=== PATIENT | female | born 2000 | race Caucasian/White ===

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

== ENCOUNTER 2020-01-23 02:53 | Observation (INO) ==
[2020-01-23] MEDS ORDERED: SODIUM CHLORIDE 0.9% 1000ML 1,000 ML IV SCH (03:15)
--- NOTE | 2020-01-23 03:49 | Emergency Department Note ---
History of Present Illness General Chief complaint: Overdose (Intentional) Stated complaint: OVERDOSE Time Seen by Provider: 01/23/20 02:56 Source: patient Mode of arrival: ambulatory Limitations: no limitations History of Present Illness Provider complaint: Intentional overdose Onset (ago): day(s) 1 Maximum Pain Intensity: 0 Current Pain Intensity: 0 Associated symptoms: + loss of appetite, + malaise and + nausea/vomiting; no chest pain and no fever/chills Treatments prior to arrival: none This is a 27-year-old female who identifies as male and goes by the name Braxton who presents via EMS with police accompanying them after an intentional overdose. Patient states yesterday at 3 PM he took 7 g of Tylenol, drank two thirds of a bottle of NyQuil, took 1 shot of vodka, and smoked some weed. He states the goal was to "not wake up". Patient states he has been dealing with increased depression, however this was the first time he had thought of or attempted suicide. Patient states he does not routinely speak with anyone regarding anxiety or depression. Patient states he has had a lot of vomiting throughout the evening. Denies abdominal pain. Denies fevers or chills, black or bloody stools. Police wrote a 302 petitioning statement. Pt seen during a time of high acuity and national emergency pandemic while wearing PPE. Home Medications Home Medications Medication Instructions Recorded Confirmed Type testosterone cypionate 5 mg SUBCUT .[id number] 01/23/20 01/23/20 History [Depo-Testosterone] Allergies Allergy/AdvReac Type Severity Reaction Status Date / Time No Known Allergies Allergy Unverified 01/23/20 03:24 Past Med/Surg History Surgical History (Updated 01/23/20 @ 11:20 by Mitesh Manzo MD) S/P mastectomy, bilateral Social History Smoking Status: Current some day smoker Tobacco Type: Cigarettes Cigarettes Per Day: one every other week; Second Hand Exposure: No; Do You Dip or Chew Tobacco: No; Tobacco Cessation Education Requested by Patient: No Hx Alcohol Use: Yes Alcohol type: hard liquor Hx Substance Use: Yes Last Used Substance: Hours (ago) Preferred Language: Japanese Communication Ability: Effective Knife Setter Required: No Beliefs That Will Affect Care: None Current Living Situation: Alone Other Information That Helps Us Care for You: No Feels Safe at Home: Yes Safety Concerns: Feels Safe At This Time Gender Identity: Male Assistive Devices: Glasses Review of Systems See HPI for pertinent positives & negatives. and A total of 10 systems reviewed and were otherwise negative Physical Exam Vital Signs Vital Signs - 24 hr 01/23/20 03:05 01/23/20 03:21 01/23/20 04:45 Temperature 36.9 C Temperature Source Oral Pulse Rate 78 54 L Pulse Rate from SpO2 Sensor 55 L Respiratory Rate 14 14 Respiratory Effort / Characteristics Non-Labored Spontaneous Respiratory Depth Normal Blood Pressure 125/89 114/57 L Blood Pressure Mean 101 69 Blood Pressure Position Sitting Pulse Oximetry 100 99 97 Oxygen Delivery Method Room Air Room Air Sepsis Recent Fever Within 48 Hours No Sepsis New/Unexplained Change in Mental Status N/A Sepsis Action Taken by Nursing No Action Required GENERAL: alert, ill appearing, well nourished, no distress, non-toxic EYE EXAM: normal conjunctiva, PERRL and EOM's grossly intact OROPHARYNX: no exudate, no erythema, lips, buccal mucosa, and tongue normal and mucous membranes are moist NECK: supple, no nuchal rigidity, no adenopathy, non-tender LUNGS: Clear to auscultation. Normal chest wall mechanics, no w/r/r HEART: no murmurs, S1 normal and S2 normal ABDOMEN: abdomen soft, non-tender, normo-active bowel sounds, no masses, no rebound or guarding. BACK: Back is symmetrical on inspection and there is no deformity, no midline tenderness, no CVA tenderness. SKIN: no rashes and no bruising UPPER EXTREMITIES: upper extremities are grossly normal. FROM, nml pulses b/l. LOWER EXTREMITIES: No pitting edema. FROM, nml pulses b/l. NEURO EXAM: Normal sensorium, cranial nerves II-XII grossly intact, normal speech, no gross weakness of arms, no gross weakness of legs. Gross sensation intact. Course Course 0412: Called charge to question why no labs were performed yet. She investigated and reported they were awaiting manufacturer's service representative from lab. 0500: Case discussed with Poison Control now that labs have finally returned. They recommend 21-hour regimen of Acetadote. 0515: Patient updated on plan for medical admission at this time. No further nausea or vomiting. IV fluids infusing. [facility]. Administered Medications Lactated Ringer's (Lr) 1,000 mls @ 125 mls/hr IV .Q8H LAVERN Stop: 02/22/20 07:19 Last Admin: 01/24/20 07:18 Dose: 125 mls/hr Documented by: [id number] Infusion: 01/24/20 06:58 Dose: 125 mls/hr Documented by: [id number] Admin: 01/23/20 22:58 Dose: 125 mls/hr Documented by: [id number] Infusion: 01/23/20 22:58 Dose: 125 mls/hr Documented by: [id number] Admin: 01/23/20 15:55 Dose: 125 mls/hr Documented by: [id number] Infusion: 01/23/20 15:55 Dose: 125 mls/hr Documented by: [id number] Admin: 01/23/20 08:32 Dose: 125 mls/hr Documented by: [id number] Ondansetron HCl (Ondansetron Inj 2 Mg/Ml 2 Ml Vial) 4 mg IV Q6H PRN PRN Reason: Nausea Stop: 02/22/20 07:19 Last Admin: 01/23/20 07:33 Dose: 4 mg Documented by: [id number] Discontinued Medications Acetylcysteine (Acetylcysteine Iv 21 Hr Regimen (>40kg)) 1 ea IV NOW STA; Protocol Stop: 01/23/20 05:07 Last Admin: 01/23/20 08:32 Dose: Not Given Documented by: [id number] Sodium Chloride (Nss 1000ml) 1,000 mls @ 999 mls/hr IV .Q1H1M LAVERN Stop: 01/23/20 04:15 Last Infusion: 01/23/20 04:37 Dose: 0 mls/hr Documented by: [id number] Admin: 01/23/20 03:22 Dose: 999 mls/hr Documented by: [id number] Sodium Chloride (Nss 1000ml) 1,000 mls @ 999 mls/hr IV .Q1H1M ONE Stop: 01/23/20 05:21 Last Infusion: 01/23/20 06:34 Dose: 0 mls/hr Documented by: [id number] Admin: 01/23/20 05:34 Dose: 999 mls/hr Documented by: [id number] Acetylcysteine 7,710 mg/ (Dextrose) 238.55 mls @ 200 mls/hr IV ONCE ONE Stop: 01/23/20 06:17 Last Infusion: 01/23/20 07:06 Dose: 0 mls/hr Documented by: [id number] Admin: 01/23/20 05:53 Dose: 200 mls/hr Documented by: [id number] Acetylcysteine 2,570 mg/ (Dextrose) 512.85 mls @ 125 mls/hr IV ONCE ONE Stop: 01/23/20 10:13 Last Infusion: 01/23/20 12:38 Dose: 0 mls/hr Documented by: [id number] Admin: 01/23/20 08:31 Dose: 125 mls/hr Documented by: [id number] Acetylcysteine 5,140 mg/ (Dextrose) 1,025.7 mls @ 62.5 mls/hr IV ONCE ONE Stop: 01/24/20 02:31 Last Infusion: 01/24/20 05:05 Dose: 0 mls/hr Documented by: [id number] Admin: 01/23/20 12:40 Dose: 62.5 mls/hr Documented by: [id number] Ondansetron HCl (Ondansetron Inj 2 Mg/Ml 2 Ml Vial) 4 mg IV NOW STA Stop: 01/23/20 04:14 Last Admin: 01/23/20 04:37 Dose: 4 mg Documented by: [id number] Critical Care Time Critical Care Time: Yes Total Critical Care Time: 39 Critical care of 39 min performed to assess and manage high likelihood of life- threatening APAP toxicity, involving labs and imaging performed with assessment to evaluate APAP toxicity diagnosis with frequent reassessment. This time includes bedside time, treatment discussions with patient/family/consultants, documentation time and excludes procedure time. Medical Decision Making Differential Diagnosis Overdose, toxicologic, infection, hypoglycemia, electrolyte abnormalities, cardiac sources, intracerebral event, neurologic, trauma, mood disorder, infection, hypoglycemia, electrolyte abnormalities, cardiac sources, intrac erebral event, toxicologic, neurologic, as well as others. Medical Records Attestation: I reviewed the patient's medical records. Home Medications Current Medication List: was personally reviewed by me Laboratory Data Attestation: I reviewed the patient's lab results. Result diagrams: 01/24/20 00:11 01/24/20 00:11 Lab Results 01/23/20 01/23/2020 Range/Units 03:46 03:46 03:46 WBC 7.75 (4.8-10.8) K/uL RBC 5.90 H (4.2-5.4) M/uL Hgb 16.9 H (12.0-16.0) g/dL Hct 49.2 H (37-47) % MCV 83.4 (80-100) fL MCH 28.6 (25-34) pg MCHC 34.3 (32-36) g/dL RDW Std Deviation 35.6 L (36.4-46.3) fL RDW Coeff of Norma 11.7 (11.5-14.5) % Plt Count 259 (130-400) K/uL MPV 10.9 H (7.4-10.4) fL Immature Gran % (Auto) 0.1 % Neut % (Auto) 88.2 % Lymph % (Auto) 8.9 % Hutchinson % (Auto) 2.6 % Eos % (Auto) 0.1 % Baso % (Auto) 0.1 % Neut # (Auto) 6.83 H (1.4-6.5) K/uL Lymph # (Auto) 0.69 L (1.2-3.4) K/uL Hutchinson # (Auto) 0.20 (0.11-0.59) K/uL Eos # (Auto) 0.01 (0-0.5) K/uL Baso # (Auto) 0.01 (0-0.2) K/uL Immature Gran # (Auto) 0.01 (0.00-0.02) K/uL PT (9.0-12.0) Seconds INR (0.9-1.1) Sodium 143 (136-145) mmol/L Potassium 4.1 (3.5-5.1) mmol/L Chloride 113 H (98-107) mmol/L Carbon Dioxide 25 (21-32) mmol/L Anion Gap 5.0 (3-11) BUN 11 (7-18) mg/dl Creatinine 1.20 (0.6-1.2) mg/dl Est Cr Clr Drug Dosing 60.2 ml/min Est GFR ( Amer) 74.8 Est GFR (Non-Af Amer) 64.6 BUN/Creatinine Ratio 9.3 L (10-20) Glucose 102 H (70-99) mg/dl Calcium 8.5 (8.5-10.1) mg/dl Total Bilirubin 0.4 (0.2-1) mg/dl AST 32 (15-37) U/L ALT 43 (12-78) U/L Alkaline Phosphatase 69 (45-117) U/L Total Protein 7.2 (6.4-8.2) gm/dl Albumin 3.5 (3.4-5.0) gm/dl Globulin 3.7 (2.5-4.0) gm/dl Albumin/Globulin Ratio 0.9 (0.9-2) TSH 1.020 (0.300-4.500) uIu/ml HCG, Qual (Negative) Urine Color Urine Appearance (Clear) Urine pH (4.5-7.5) Ur Specific [place] (1.000-1.030) Urine Protein (Negative) Urine Glucose (UA) (Negative) Urine Ketones (Negative) Urine Blood (Negative) Urine Nitrite (Negative) Urine Bilirubin (Negative) Urine Urobilinogen (Negative) Ur Leukocyte Esterase (Negative) Urine WBC (Auto) (0-5) /hpf Urine RBC (Auto) (0-4) /hpf U Hyaline Cast (Auto) (0-5) /lpf U Epithel Cells (Auto) (0-5) /lpf Urine Bacteria (Auto) (Negative) Salicylates < 1.7 L (2.8-20) mg/dl Urine Opiates Screen (Neg) Ur Methadone, Qual (Neg) Acetaminophen 60 H (10-30) ug/ml Urine Barbiturates (Neg) Ur Phencyclidine (PCP) (Neg) U Amphetamin/Meth Scrn (Neg) MDMA (Ecstasy) Screen (Neg) U Benzodiazepines Scrn (Neg) Ur Cocaine Metabolite (Neg) U Marijuana (THC) Screen (Neg) Ethyl Alcohol mg/dL (0-3) mg/dl 01/23/20 01/23/20 01/23/20 Range/Units 03:46 03:46 03:52 WBC (4.8-10.8) K/uL RBC (4.2-5.4) M/uL Hgb (12.0-16.0) g/dL Hct (37-47) % MCV (80-100) fL MCH (25-34) pg MCHC (32-36) g/dL RDW Std Deviation (36.4-46.3) fL RDW Coeff of Norma (11.5-14.5) % Plt Count (130-400) K/uL MPV (7.4-10.4) fL Immature Gran % (Auto) % Neut % (Auto) % Lymph % (Auto) % Hutchinson % (Auto) % Eos % (Auto) % Baso % (Auto) % Neut # (Auto) (1.4-6.5) K/uL Lymph # (Auto) (1.2-3.4) K/uL Hutchinson # (Auto) (0.11-0.59) K/uL Eos # (Auto) (0-0.5) K/uL Baso # (Auto) (0-0.2) K/uL Immature Gran # (Auto) (0.00-0.02) K/uL PT 12.7 H (9.0-12.0) Seconds INR 1.2 H (0.9-1.1) Sodium (136-145) mmol/L Potassium (3.5-5.1) mmol/L Chloride (98-107) mmol/L Carbon Dioxide (21-32) mmol/L Anion Gap (3-11) BUN (7-18) mg/dl Creatinine (0.6-1.2) mg/dl Est Cr Clr Drug Dosing ml/min Est GFR ( Amer) Est GFR (Non-Af Amer) BUN/Creatinine Ratio (10-20) Glucose (70-99) mg/dl Calcium (8.5-10.1) mg/dl Total Bilirubin (0.2-1) mg/dl AST (15-37) U/L ALT (12-78) U/L Alkaline Phosphatase (45-117) U/L Total Protein (6.4-8.2) gm/dl Albumin (3.4-5.0) gm/dl Globulin (2.5-4.0) gm/dl Albumin/Globulin Ratio (0.9-2) TSH (0.300-4.500) uIu/ml HCG, Qual Negative (Negative) Urine Color Urine Appearance (Clear) Urine pH (4.5-7.5) Ur Specific [place] (1.000-1.030) Urine Protein (Negative) Urine Glucose (UA) (Negative) Urine Ketones (Negative) Urine Blood (Negative) Urine Nitrite (Negative) Urine Bilirubin (Negative) Urine Urobilinogen (Negative) Ur Leukocyte Esterase (Negative) Urine WBC (Auto) (0-5) /hpf Urine RBC (Auto) (0-4) /hpf U Hyaline Cast (Auto) (0-5) /lpf U Epithel Cells (Auto) (0-5) /lpf Urine Bacteria (Auto) (Negative) Salicylates (2.8-20) mg/dl Urine Opiates Screen (Neg) Ur Methadone, Qual (Neg) Acetaminophen (10-30) ug/ml Urine Barbiturates (Neg) Ur Phencyclidine (PCP) (Neg) U Amphetamin/Meth Scrn (Neg) MDMA (Ecstasy) Screen (Neg) U Benzodiazepines Scrn (Neg) Ur Cocaine Metabolite (Neg) U Marijuana (THC) Screen (Neg) Ethyl Alcohol mg/dL < 3.0 (0-3) mg/dl 01/23/20 01/23/20 Range/Units 05:29 05:29 WBC (4.8-10.8) K/uL RBC (4.2-5.4) M/uL Hgb (12.0-16.0) g/dL Hct (37-47) % MCV (80-100) fL MCH (25-34) pg MCHC (32-36) g/dL RDW Std Deviation (36.4-46.3) fL RDW Coeff of Norma (11.5-14.5) % Plt Count (130-400) K/uL MPV (7.4-10.4) fL Immature Gran % (Auto) % Neut % (Auto) % Lymph % (Auto) % Hutchinson % (Auto) % Eos % (Auto) % Baso % (Auto) % Neut # (Auto) (1.4-6.5) K/uL Lymph # (Auto) (1.2-3.4) K/uL Hutch[place] # (Auto) (0.11-0.59) K/uL Eos # (Auto) (0-0.5) K/uL Baso # (Auto) (0-0.2) K/uL Immature Gran # (Auto) (0.00-0.02) K/uL PT (9.0-12.0) Seconds INR (0.9-1.1) Sodium (136-145) mmol/L Potassium (3.5-5.1) mmol/L Chloride (98-107) mmol/L Carbon Dioxide (21-32) mmol/L Anion Gap (3-11) BUN (7-18) mg/dl Creatinine (0.6-1.2) mg/dl Est Cr Clr Drug Dosing ml/min Est GFR ( Amer) Est GFR (Non-Af Amer) BUN/Creatinine Ratio (10-20) Glucose (70-99) mg/dl Calcium (8.5-10.1) mg/dl Total Bilirubin (0.2-1) mg/dl AST (15-37) U/L ALT (12-78) U/L Alkaline Phosphatase (45-117) U/L Total Protein (6.4-8.2) gm/dl Albumin (3.4-5.0) gm/dl Globulin (2.5-4.0) gm/dl Albumin/Globulin Ratio (0.9-2) TSH (0.300-4.500) uIu/ml HCG, Qual (Negative) Urine Color Dark Yellow Urine Appearance Clear (Clear) Urine pH 5.0 (4.5-7.5) Ur Specific [place] > 1.045 H (1.000-1.030) Urine Protein Trace H (Negative) Urine Glucose (UA) Negative (Negative) Urine Ketones Negative (Negative) Urine Blood Negative (Negative) Urine Nitrite Negative (Negative) Urine Bilirubin Negative (Negative) Urine Urobilinogen Negative (Negative) Ur Leukocyte Esterase Negative (Negative) Urine WBC (Auto) 1-5 (0-5) /hpf Urine RBC (Auto) 0-4 (0-4) /hpf U Hyaline Cast (Auto) 10-30 H (0-5) /lpf U Epithel Cells (Auto) >30 H (0-5) /lpf Urine Bacteria (Auto) Negative (Negative) Salicylates (2.8-20) mg/dl Urine Opiates Screen Neg (Neg) Ur Methadone, Qual Neg (Neg) Acetaminophen (10-30) ug/ml Urine Barbiturates Neg (Neg) Ur Phencyclidine (PCP) Neg (Neg) U Amphetamin/Meth Scrn Neg (Neg) MDMA (Ecstasy) Screen Neg (Neg) U Benzodiazepines Scrn Neg (Neg) Ur Cocaine Metabolite Neg (Neg) U Marijuana (THC) Screen Pos H (Neg) Ethyl Alcohol mg/dL (0-3) mg/dl ECG Data Attestation: I personally reviewed and interpreted this ECG as follows: Indication: + toxicologic Rate (beats per minute): 90 Rhythm: + normal sinus ECG Intervals/blocks: + Normal QRS and + Normal QT ECG Friend: + Normal ECG ST segments: + Normal ST segments Additional Comments: No evidence of a terminal R wave in aVR MDM Narrative This is a 19-year-old patient here after an intentional overdose with alcohol, Tylenol, NyQuil, and marijuana. Labs were slow and being obtained with lab manufacturer's service representative which delayed return of Tylenol level. Ultimately Tylenol level was elevated despite normal LFTs and in discussion with poison control he did recommend treatment with Acetadote. Patient's nausea improved here with addition of Zofran. Patient was hydrated with IV fluids. I did discuss all results with patient as well as need for medical admission prior to additional psychiatric evaluation, he verbalized understanding was in agreement with plan. Likely APAP levels elevated due to combination of oral Tylenol plus the acetaminophen that is in NyQuil. I have no other suspicion for any additional toxidrome at this time. Patient denied any other coingestions. Patient's other labs reassuring. Patient remained hemodynamically stable while in the emergency room. An order was placed for continuous cardiac monitoring. The monitor shows a rate of _66_ with _NS_ rhythm. Impression & Plan Intentional acetaminophen overdose, Suicide attempt, Depression, Nausea & vomiting Discharge Plan Visit Data Chief Complaint: Overdose (Intentional) Stated Complaint: OVERDOSE ED Provider: Jaleesa Robins Discharge Problem: Intentional acetaminophen overdose, Suicide attempt, Depression, Nausea & vomiting Patient Disposition: Admitted As Inpatient Condition: Good Discharge Instructions Interventions: ED Discharge Assessment Last Done: 01/23/20 07:04 Discharge Problem: Intentional acetaminophen overdose Qualifiers: Encounter type: initial encounter Qualified Code(s): T39.1X2A - Poisoning by 4- Aminophenol derivatives, intentional self-harm, initial encounter Depression Qualifiers: Depression Type: major depressive disorder Major depression recurrence: unspecified whether recurrent Active/Remission status: currently active Major depression episode severity: moderate Qualified Code(s): F32.1 - Major depr essive disorder, single episode, moderate Nausea & vomiting Qualifiers: Vomiting type: unspecified Vomiting Intractability: non-intractable Qualified Code(s): R11.2 - Nausea with vomiting, unspecified
[2020-01-23 04:06] LABS: Basophils # (auto) 0.01 K/uL (0-0.2); Basophils % (auto) 0.1 %; Eosinophils # (auto) 0.01 K/uL (0-0.5); Eosinophils % (auto) 0.1 %; Hematocrit (blood only) 49.2 % (37-47); Hemoglobin 16.9 g/dL (12.0-16.0); Immature Granulocytes # (auto) 0.01 K/uL (0.00-0.02); Immature Granulocytes % (auto) 0.1 %; Lymphocytes # (auto) 0.69 K/uL (1.2-3.4); Lymphocytes % (auto) 8.9 %; Mean Corpuscular Hemoglobin 28.6 pg (25-34); Mean Corpuscular Hgb Conc 34.3 g/dL (32-36); Mean Corpuscular Volume 83.4 fL (80-100); Mean Platelet Volume 10.9 fL (7.4-10.4); Monocytes % (auto) 2.6 %; Neutrophils # (auto) 6.83 K/uL (1.4-6.5); Neutrophils % (auto) 88.2 %; Platelet Count 259 K/uL (130-400); RDW Coefficient of Variation 11.7 % (11.5-14.5); RDW Standard Deviation 35.6 fL (36.4-46.3); White Blood Count 7.75 K/uL (4.8-10.8)
[2020-01-23] MEDS ORDERED: ONDANSETRON INJ 2 MG/ML 2 ML VIAL IV STA (04:13)
[2020-01-23] MEDS ORDERED: SODIUM CHLORIDE 0.9% 1000ML 1,000 ML IV ONE (04:21)
[2020-01-23 04:24] LABS: Acetaminophen 60 ug/ml (10-30); Albumin Level 3.5 gm/dl (3.4-5.0); BUN Creatinine Ratio 9.3 (10-20); Calcium 8.5 mg/dl (8.5-10.1); Creatinine Clr Calc Pharmacy 60.2 ml/min; Est GFR (African American) 74.8; Est GFR (Non-African American) 64.6; Potassium 4.1 mmol/L (3.5-5.1); Salicylate < 1.7 mg/dl (2.8-20)
[2020-01-23 04:35] LABS: Albumin Globulin Ratio 0.9 (0.9-2); Bilirubin,Total 0.4 mg/dl (0.2-1); Globulin 3.7 gm/dl (2.5-4.0); Thyroid Stimulating Hormone 1.02 uIu/ml (0.300-4.500); Total Protein 7.2 gm/dl (6.4-8.2)
[2020-01-23 04:40] LABS: Pregnancy Test, Serum Negative (Negative)
[2020-01-23] MEDS ORDERED: ACETYLCYSTEINE IV ONE ×3 (05:06→10:07)
[2020-01-23] MEDS ORDERED: AcetylCYSTEINE IV 21 HR REGIMEN (>40KG) IV STA (05:06)
[2020-01-23] MEDS ORDERED: DEXTROSE 5% IV ONE ×3 (05:06→10:07)
[2020-01-23 05:32] LABS: INR 1.2 (0.9-1.1); Prothrombin Time 12.7 Seconds (9.0-12.0)
[2020-01-23 05:43] LABS: Appearance Urine Clear (Clear); Bacteria Urine Automated Negative (Negative); Bilirubin Urine Negative (Negative); Blood Urine Negative (Negative); Color Urine Dark Yellow; Epithelial Cell Urine Auto >30 /lpf (0-5); Glucose Urine UA Negative (Negative); Ketones Urine Negative (Negative); Leukocyte Esterase Urine Negative (Negative); Nitrite Urine Negative (Negative); Protein Urine Trace (Negative); RBC Urine Automated 0-4 /hpf (0-4); Specific Gravity Urine > 1.045 (1.000-1.030); Urobilinogen Urine Negative (Negative)
[2020-01-23 06:00] LABS: Amphetamines+Metham, Urine Neg (Neg); Barbiturates, Urine Neg (Neg); Benzodiazepine, Urine Neg (Neg); Cocaine, Urine Neg (Neg); MDMA (Ecstacy), Urine Neg (Neg); Methadone, Urine Neg (Neg); Opiate, Urine Neg (Neg); Phencyclidine, Urine Neg (Neg)
[2020-01-23] MEDS ORDERED: ONDANSETRON INJ 2 MG/ML 2 ML VIAL IV PRN (07:20)
[2020-01-23] MEDS ORDERED: POLYETHYLENE (MIRALAX) 17 GM PACK PO PRN (07:20)
[2020-01-23] MEDS ORDERED: ALUMINUM/MAGNESIUM SUSP 30 ML UDC PO PRN (07:20)
--- NOTE | 2020-01-23 07:52 | XRay Report ---
XR chest 1V portable CLINICAL HISTORY: vomiting COMPARISON STUDY: No previous studies for comparison. FINDINGS: Lung volumes are normal. Lungs are clear. There is no pneumothorax or pleural effusion. Car diac size is normal. Mediastinal contours are normal. There is no evidence for pulmonary edema. IMPRESSION: No acute cardiopulmonary findings. ACT 112: Negative or not required by law. Electronically signed by: Cliff Silva M.D. 01/23/2020 7:50 AM
--- NOTE | 2020-01-23 07:53 | History & Physical Report ---
Date of Service January 23, 2020 Assessment & Plan (1) Intentional acetaminophen overdose: Acetaminophen overdose Small overdose, 7 grams of acetaminophen as well as nyquil and vodka and vomited shortly after ingestion but poison control contacted who recommend full NAC course Patient asymptomatic at present Patient startd on 24 hour NAC protocol Will continue to monitor closely but expect a full recovery Suicide attempt First suicide attempt per patient, Psychiatry consulted Suicide precautions, 1:1 ordered DVT PPx: Ambulate F/E/N: Regular diet Dispo: Admit for further evaluation and FUll Code (2) Suicide attempt: (3) Tobacco abuse: (4) Depression: Admission and Anticipated Discharge Date Admission Date: January 23, 2020 History of Present Illness Chief Complaint: Intentional overdose Primary Care Provider: [facility] Braxton Jackson is a 19 year old transgender male (s/p bilateral matectomy, on biweekly testosterone injections) who presents after a suicide attempt and intentional overdose. Patient has been dealing with a lot of stressors recently including a toshia long dstance relationship (boyfriend lives in [place]), his mother has been ill and hospitalized, he is very concerned about the election coming up and feels that his rights may be taken away depending on the results. These stressors have been ongoing and worsening of late. Yesterday around 4 pm he decided that he couldn't take it anymore and desired to kill himself. He appraised his house and took everyghing he had including 7 g tylenol, most of a bottle of nyquil, and a shot of vodka. Patient became sick at some point thereafter and vomited. His phone had and he was unsure of the time when he vomited or how many times he did but he does say it was several times. He then got into the bathtub both to soothe his nausea and because he hoped he would lose consciousness and drown. Eventually he felt as though he would not and did not want to do irreversible damage to liver and called 911. On presentation to ED vitals L poison control was contacted and patient was started on NAC therapy. ECG without acute changes. Very occasional smoker, very occasional diinker, smokes weed occasionally. Full Code, 302 on file from police Allergies Allergy/AdvReac Type Severity Reaction Status Date / Time No Known Allergies Allergy Unverified 10/24/20 03:24 Home Medications Home Medications Medication Instructions Recorded Confirmed Type testosterone cypionate 5 mg SUBCUT .[id number] 01/23/20 01/23/20 History [Depo-Testosterone] Past Med/Surg History Surgical History (Updated 01/23/20 @ 11:20 by Mitesh Manzo MD) S/P mastectomy, bilateral Social History Smoking Status: Current some day smoker Tobacco Type: Cigarettes Cigarettes Per Day: one every other week; Second Hand Exposure: No; Do You Dip or Chew Tobacco: No; Tobacco Cessation Education Requested by Patient: No Hx Alcohol Use: Yes Alcohol type: hard liquor Hx Substance Use: Yes Last Used Substance: Hours (ago) Preferred Language: Beninese Communication Ability: Effective Perforator Required: No Beliefs That Will Affect Care: None Current Living Situation: Alone Other Information That Helps Us Care for You: No Feels Safe at Home: Yes Safety Concerns: Feels Safe At This Time Gender Identity: Male Assistive Devices: Glasses Review of Systems Review of Systems: All systems reviewed & are unremarkable except as noted in HPI & below Physical Exam Constitutional: WD/WN, vitals as above Eyes: PERRL, conjunctivae normal, anicteric sclerae ENMT: external ear and nose normal, oropharynx normal Cardiovascular: RRR, no murmur, no edema Gastrointestinal (Abdomen): normal bowel sounds, soft, nontender, no hepatosplenomegaly Musculoskeletal: no cyanosis or clubbing, extremities motor strength 5/5 Skin: no rashes, warm and dry Results & Data Results & Data ([facility]) Vital Signs (Past 12 Hours) Vital Signs Temp Pulse Resp BP Pulse Ox 01/23/20 06:00 83 17 136/86 99 01/23/20 05:00 52 L 18 109/54 L 98 01/23/20 04:45 54 L 14 114/57 L 97 01/23/20 03:21 99 01/23/20 03:05 36.9 C 78 14 125/89 100 Code Status & VTE Plan VTE Prophylaxis Plan VTE Prophylaxis will be ordered: No Supervising Physician Co-Signing Physician Notes Patient seen and examined, chart reviewed, case discussed with Dr. Adames and I agree with his assessment and plan as documented above. Briefly, patient is 19yo transgender male (preferred name: Braxton) presenting after intentional Tylenol overdose suicide attempt. Also EtOH, Nyquil ingestion. Patient ingested 7gm of Tylenol Tylenol level=60 On exam patient is afebrile, HD stable, NAD, resting comfortably Affect slightly flat but patient makes good eye contact and answers questions appropriately Skin -no rash/lesions HEENT - NC/AT, PERRL, EOMI, MMM Heart - +S1/S2, regular, no m/r/g Lungs - CTA Abd - +BS, soft, NT/ND Ext - No edema Labs and images reviewed Assessment/Plan: 19yo transgender male presenting after intentional Tylenol overdose. Elevated Tylenol level of 60 AST/ALT within normal limits INR=1.2 -NAC per protocol -Monitor liver studies, INR -Psychiatry assistance appreciated -Remainder of plan as above Resident Activity Tracking Resident Involvement: Resident Care Provided Care Provided: Adult Hospital Medicine
[2020-01-23] MEDS: LACTATED RINGER'S 1,000 ML IV SCH ×3 (08:32→22:58)
--- NOTE | 2020-01-23 11:43 | Psychiatric Consultation ---
Date of Consultation January 23, 2020 Impression / Recommendations Impression Portions of the above document may have been created using voice recognition software which may introduce word substitution errors. Please direct any questions to the undersigned. (1) Depression: -Background smoldering depression sounds longstanding and coping acutely overwhelmed associated with multiple psychosocial stressors -Discussed potential treatment interventions such as serotonin acting antidepressant pharmacotherapy for depression and likely OCPD personality traits and associated anxiety but will defer antidepressant trial temporarily in the setting of potential hepatic injury associated with Tylenol overdose (2) Suicide attempt: -Patient confirms toxic ingestion was a suicide attempt. Precontemplation evidenced by suicide note. Presently denying continued intent or plan for self- harm. -Patient is expected to require inpatient psychiatric hospitalization following medical clearance and presently endorsing willingness for such. He should not be discharged without psychiatric clearance. -Maintain sitter for safety (3) Intentional acetaminophen overdose: -Tylenol level of 60 approximately 12 hours postingestion and receiving 24-hour NAC protocol per per poison control recommendations. Ingestion of both Tylenol tablets as well as NyQuil reported. Presently asymptomatic. LFTs normal so far. Risk Factors Assessment Do You Have Access To A Gun?: No Psych History Identifying Data Patient, who goes by the name Braxton, is a pleasant transgendered female to male individual who reports a history of depression but minimal mental health treatment who presents status post intentional acetaminophen overdose in a suicide attempt. Chief Complaint "I just realized that I had not been happy and I thought, if it happens it happens". History of Present Illness Patient presented through [facility] reporting intentional Tylenol overdose around 4 PM the prior afternoon. Reported 7 g Tylenol ingestion, three quarters of a bottle of generic NyQuil, shot of vodka, and some marijuana. This ingestion was taken in an effort to end his life. Mother reports suicide note was found and patient reports that he did apologize in the note for taking his life to those he cares about and provided instructions about what to do with his body and his belongings. He clearly states that he was ambivalent about living at that point. In exploring this he describes more avoidance of emotional suffering than lack of meaningful life experience. He describes background suicidal ideation for many years, likely going back to middle school, but has never attempted to harm himself before. He identifies obligation or responsibility to others as primary barrier to self-harm in the past. Believes he has been depressed since childhood. Suffered traumatic loss of of father at age 5. Reports he was told this was from a heart attack however apparently was due to an accidental overdose. Describes long awareness of the unfairness of life, but and life are commingled, and states in short, the world sucks." He describes a tendency to be highly self-critical, perfectionistic, and will "reanalyze" prior decision making in a ruminative manner. Presently he describes some continued ambivalence about the prospect of being alive but states that he has already had experiences here in the hospital that he has been grateful for which he would not have had if he had been successful in taking his life. He endorses willingness to accept treatment for his depression and indicates that he would be willing for voluntary psychiatric hospitalization following medical clearance. Patient does have a box to be 302 warrant on his chart signed by police. Recent multiple stressors including a break-up with a partner about 1 week ago which reportedly had been a toshia long- distance relationship with boyfriend living in [place]. His mother has also recently been ill and hospitalized and he has voiced significant distress about upcoming election. Symptoms of depression have included decreased interest, feelings of guilt, decreased energy, decreased concentration, variable appetite. Denies insomnia. Denies symptoms of kameron. Anxiety variable but has been increased associated with COVID-19 pandemic and does describe perfectionistic drives and a desire to seek control in his life but does not endorse overt ritualized behavior. He denies symptoms of psychosis, eating disorder. He is not taking any psychotropics at home. Initial Tylenol level appears drawn approximately 12 hours postingestion was 60 and N-acetylcysteine protocol initiated per poison control recommendations. LFTs normal so far. Presently no GI symptoms. Did reportedly vomit following ingestion. Reports that he did not see pills in his vomitus. Past Psychiatric History Previous Psych History: No psychiatrist. Briefly saw a provider at [facility] sophomore year at [employer] Out[facility] Services: On wait list for a [facility] at [facility] Previous Psych Admissions: Denies Do You Have Access To A Gun?: No History of Previous Suicide Attempt: No Past Medication Trials: 1 brief prior psychotropic trial, unrecalled agent, felt it did not work in high school Allergies Allergy/AdvReac Type Severity Reaction Status Date / Time No Known Allergies Allergy Unverified 01/23/20 03:24 Home Medications Home Medications Medication Instructions Recorded Confirmed Type testosterone cypionate 5 mg SUBCUT .[id number] 01/23/20 01/23/20 History [Depo-Testosterone] Family History Mother with depression and anxiety. Uncle with bipolar disorder. Uncle completed suicide. Also reports family history of heart disease and hypertension in mother. Substance Abuse History Reports recreational marijuana use which he finds helpful for anxiety. Alcohol use about 1 time per month and reported as only social. Reports inconsistent social tobacco use. 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[employer]) Marital Status: Single Number Of Children: 0 Beliefs That Will Affect Care: None History of Legal Problems: Denies Psychological Trauma History Comment: of father age 5 Patient History Surgical History (Updated 01/23/20 @ 11:20 by Mitesh Manzo MD) S/P mastectomy, bilateral Social History Smoking Status: Current some day smoker Tobacco Type: Cigarettes Cigarettes Per Day: one every other week; Second Hand Exposure: No; Do You Dip or Chew Tobacco: No; Tobacco Cessation Education Requested by Patient: No Hx Alcohol Use: Yes Alcohol type: hard liquor Hx Substance Use: Yes Last Used Substance: Hours (ago) Preferred Language: Citizen Of [place] Communication Ability: Effective Typo Machine Operator Required: No Beliefs That Will Affect Care: None Current Living Situation: Alone Other Information That Helps Us Care for You: No Feels Safe at Home: Yes Safety Concerns: Feels Safe At This Time Gender Identity: Male Assistive Devices: Glasses Physical Exam Psychiatric: Orientation: alert, oriented x 3 and cooperative Apperance: + disheveled and appeared stated age Eye Contact: good eye contact Motor Behavior: no abnormal motor movements; n tremor Speech: normal rate /rhythm/volume of speech Affect: mood congruent with affect (Affect is serious but not blunted or flat) Mood: + depressed mood and + anxious mood Thought Process: linear/logical thought process Thought Content: + preoccupation and + guilt Suicidal Thoughts: denies suicidal plan (Denies further intent or plan for self-harm while hospitalized) and denies suicidal intent; + reports suicidal thoughts Homicidal Thoughts: denies homicidal thoughts Hallucinations: no auditory hallucinations, no visual hallucinations and no tactile hallucinations Cognition: recent memory grossly intact, remote memory grossly intact and attention grossly intact Estimated Intelligence: average estimated intelligence Insight: good insight Judgement: + limited judgement (Judgment presently impaired associated with mood disturbance and suicidal impulsivity) Vital Signs (Past 24 Hours): Last Vital Signs Temp 36.8 C 01/23/20 07:20 Pulse 82 01/23/20 07:20 Resp 16 01/23/20 07:20 BP 121/75 01/23/20 07:20 Pulse Ox 99 01/23/20 07:20 Review of Systems Gastrointestinal: no abdominal pain, no nausea and no problem reported Psychiatric: as per Subjective / HPI 10 point review of systems otherwise negative except as per HPI Results & Data (PSY) Laboratory Results Laboratory Results - last 24 hr 01/23/20 01/23/20 01/23/20 03:46 03:46 03:46 WBC 7.75 RBC 5.90 H Hgb 16.9 H Hct 49.2 H MCV 83.4 MCH 28.6 MCHC 34.3 RDW Std Deviation 35.6 L RDW Coeff of Norma 11.7 Plt Count 259 MPV 10.9 H Immature Gran % (Auto) 0.1 Neut % (Auto) 88.2 Lymph % (Auto) 8.9 Montague % (Auto) 2.6 Eos % (Auto) 0.1 Baso % (Auto) 0.1 Neut # (Auto) 6.83 H Lymph # (Auto) 0.69 L Montague # (Auto) 0.20 Eos # (Auto) 0.01 Baso # (Auto) 0.01 Immature Gran # (Auto) 0.01 PT INR Sodium 143 Potassium 4.1 Chloride 113 H Carbon Dioxide 25 Anion Gap 5.0 BUN 11 Creatinine 1.20 Est Cr Clr Drug Dosing 60.2 Est GFR ( Amer) 74.8 Est GFR (Non-Af Amer) 64.6 BUN/Creatinine Ratio 9.3 L Glucose 102 H Calcium 8.5 Total Bilirubin 0.4 AST 32 ALT 43 Alkaline Phosphatase 69 Total Protein 7.2 Albumin 3.5 Globulin 3.7 Albumin/Globulin Ratio 0.9 TSH 1.020 HCG, Qual Urine Color Urine Appearance Urine pH Ur Specific Eldridge Urine Protein Urine Glucose (UA) Urine Ketones Urine Blood Urine Nitrite Urine Bilirubin Urine Urobilinogen Ur Leukocyte Esterase Urine WBC (Auto) Urine RBC (Auto) U Hyaline Cast (Auto) U Epithel Cells (Auto) Urine Bacteria (Auto) Salicylates < 1.7 L Urine Opiates Screen Ur Methadone, Qual Acetaminophen 60 H Urine Barbiturates Ur Phencyclidine (PCP) U Amphetamin/Meth Scrn MDMA (Ecstasy) Screen U Benzodiazepines Scrn Ur Cocaine Metabolite U Marijuana (THC) Screen U Marijuana THC Carboxy Drug Screen Comment Ethyl Alcohol mg/dL 01/23/20 01/23/20 01/23/20 03:46 03:46 03:52 WBC RBC Hgb Hct MCV MCH MCHC RDW Std Deviation RDW Coeff of Norma Plt Count MPV Immature Gran % (Auto) Neut % (Auto) Lymph % (Auto) Montague % (Auto) Eos % (Auto) Baso % (Auto) Neut # (Auto) Lymph # (Auto) Montague # (Auto) Eos # (Auto) Baso # (Auto) Immature Gran # (Auto) PT 12.7 H INR 1.2 H Sodium Potassium Chloride Carbon Dioxide Anion Gap BUN Creatinine Est Cr Clr Drug Dosing Est GFR ( Amer) Est GFR (Non-Af Amer) BUN/Creatinine Ratio Glucose Calcium Total Bilirubin AST ALT Alkaline Phosphatase Total Protein Albumin Globulin Albumin/Globulin Ratio TSH HCG, Qual Negative Urine Color Urine Appearance Urine pH Ur Specific Eldridge Urine Protein Urine Glucose (UA) Urine Ketones Urine Blood Urine Nitrite Urine Bilirubin Urine Urobilinogen Ur Leukocyte Esterase Urine WBC (Auto) Urine RBC (Auto) U Hyaline Cast (Auto) U Epithel Cells (Auto) Urine Bacteria (Auto) Salicylates Urine Opiates Screen Ur Methadone, Qual Acetaminophen Urine Barbiturates Ur Phencyclidine (PCP) U Amphetamin/Meth Scrn MDMA (Ecstasy) Screen U Benzodiazepines Scrn Ur Cocaine Metabolite U Marijuana (THC) Screen U Marijuana THC Carboxy Drug Screen Comment Ethyl Alcohol mg/dL < 3.0 01/23/20 01/23/20 01/23/20 05:29 05:29 05:29 WBC RBC Hgb Hct MCV MCH MCHC RDW Std Deviation RDW Coeff of Norma Plt Count MPV Immature Gran % (Auto) Neut % (Auto) Lymph % (Auto) Montague % (Auto) Eos % (Auto) Baso % (Auto) Neut # (Auto) Lymph # (Auto) Montague # (Auto) Eos # (Auto) Baso # (Auto) Immature Gran # (Auto) PT INR Sodium Potassium Chloride Carbon Dioxide Anion Gap BUN Creatinine Est Cr Clr Drug Dosing Est GFR ( Amer) Est GFR (Non-Af Amer) BUN/Creatinine Ratio Glucose Calcium Total Bilirubin AST ALT Alkaline Phosphatase Total Protein Albumin Globulin Albumin/Globulin Ratio TSH HCG, Qual Urine Color Dark Yellow Urine Appearance Clear Urine pH 5.0 Ur Specific Eldridge > 1.045 H Urine Protein Trace H Urine Glucose (UA) Negative Urine Ketones Negative Urine Blood Negative Urine Nitrite Negative Urine Bilirubin Negative Urine Urobilinogen Negative Ur Leukocyte Esterase Negative Urine WBC (Auto) 1-5 Urine RBC (Auto) 0-4 U Hyaline Cast (Auto) 10-30 H U Epithel Cells (Auto) >30 H Urine Bacteria (Auto) Negative Salicylates Urine Opiates Screen Neg Ur Methadone, Qual Neg Acetaminophen Urine Barbiturates Neg Ur Phencyclidine (PCP) Neg U Amphetamin/Meth Scrn Neg MDMA (Ecstasy) Screen Neg U Benzodiazepines Scrn Neg Ur Cocaine Metabolite Neg U Marijuana (THC) Screen Pos H U Marijuana THC Carboxy Pending Drug Screen Comment Pending Ethyl Alcohol mg/dL Medications Administered Lactated Ringer's (Lr) 1,000 mls @ 125 mls/hr IV .Q8H LAVERN Stop: 02/22/20 07:19 Last Admin: 01/23/20 08:32 Dose: 125 mls/hr Documented by: [id number] Ondansetron HCl (Ondansetron Inj 2 Mg/Ml 2 Ml Vial) 4 mg IV Q6H PRN PRN Reason: Nausea Stop: 02/22/20 07:19 Last Admin: 01/23/20 07:33 Dose: 4 mg Documented by: [id number] Coding Level of Care Code 07124 U Intl Hosp Care Lvl 2 Diagnoses Depression F32.9 Suicide attempt T14.91XA Intentional acetaminophen overdose T39.1X2A Time Spent (min) 60
--- NOTE | 2020-01-24 00:16 | Billing Data ---
Date of Service January 23, 2020 Coding Level of Care Code 80677 Initial Inpt Care Lvl 2
[2020-01-24 00:33] LABS: Basophils # (auto) 0.01 K/uL (0-0.2); Basophils % (auto) 0.1 %; Eosinophils # (auto) 0.19 K/uL (0-0.5); Eosinophils % (auto) 2.7 %; Hematocrit (blood only) 43.1 % (37-47); Hemoglobin 14.5 g/dL (12.0-16.0); Immature Granulocytes # (auto) 0.01 K/uL (0.00-0.02); Immature Granulocytes % (auto) 0.1 %; Lymphocytes # (auto) 2.85 K/uL (1.2-3.4); Lymphocytes % (auto) 40.5 %; Mean Corpuscular Hemoglobin 28.5 pg (25-34); Mean Corpuscular Hgb Conc 33.6 g/dL (32-36); Mean Corpuscular Volume 84.7 fL (80-100); Mean Platelet Volume 10.8 fL (7.4-10.4); Monocytes # (auto) 0.67 K/uL (0.11-0.59); Monocytes % (auto) 9.5 %; Neutrophils # (auto) 3.31 K/uL (1.4-6.5); Neutrophils % (auto) 47.1 %; Platelet Count 220 K/uL (130-400); RDW Coefficient of Variation 11.8 % (11.5-14.5); RDW Standard Deviation 36.8 fL (36.4-46.3); Red Blood Count 5.09 M/uL (4.2-5.4); White Blood Count 7.04 K/uL (4.8-10.8)
[2020-01-24 00:49] LABS: INR 1.2 (0.9-1.1); Prothrombin Time 12.5 Seconds (9.0-12.0)
[2020-01-24 01:03] LABS: Alanine Aminotransferase 29 U/L (12-78); Albumin Level 2.6 gm/dl (3.4-5.0); Alkaline Phosphatase 50 U/L (45-117); Aspartate Aminotransferase 17 U/L (15-37); Bilirubin Direct < 0.1 mg/dl (0-0.2); Bilirubin,Total 0.3 mg/dl (0.2-1); Blood Urea Nitrogen 8 mg/dl (7-18); Calcium 8.1 mg/dl (8.5-10.1); Carbon Dioxide 27 mmol/L (21-32); Chloride 112 mmol/L (98-107); Creatinine Clr Calc Pharmacy 92.6 ml/min; Est GFR (African American) 116.8; Est GFR (Non-African American) 100.8; Glucose 91 mg/dl (70-99); Potassium 3.8 mmol/L (3.5-5.1); Sodium 144 mmol/L (136-145); Total Protein 5.7 gm/dl (6.4-8.2)
[2020-01-24] MEDS: LACTATED RINGER'S 1,000 ML IV SCH ×2 (07:18→16:48)
--- NOTE | 2020-01-24 14:37 | Discharge Summary ---
Date of Service January 24, 2020 Admission HPI Per Admitting Provider Braxton Jackson is a 19 year old transgender male (s/p bilateral matectomy, on biweekly testosterone injections) who presents after a suicide attempt and intentional overdose. Patient has been dealing with a lot of stressors recently including a toshia long dstance relationship (boyfriend lives in [place]), his mother has been ill and hospitalized, he is very concerned about the election coming up and feels that his rights may be taken away depending on the results. These stressors have been ongoing and worsening of late. Yesterday around 4 pm he decided that he couldn't take it anymore and desired to kill himself. He appraised his house and took everyghing he had including 7 g tylenol, most of a bottle of nyquil, and a shot of vodka. Patient became sick at some point thereafter and vomited. His phone had and he was unsure of the time when he vomited or how many times he did but he does say it was several times. He then got into the bathtub both to soothe his nausea and because he hoped he would l ose consciousness and drown. Eventually he felt as though he would not and did not want to do irreversible damage to liver and called 911. On presentation to ED vitals [facility] poison control was contacted and patient was started on NAC therapy. ECG without acute changes. Very occasional smoker, very occasional diinker, smokes weed occasionally. Full Code, 302 on file from police Admission Exam Per Admitting Provider Constitutional: WD/WN, vitals as above Eyes: PERRL, conjunctivae normal, anicteric sclerae ENMT: external ear and nose normal, oropharynx normal Cardiovascular: RRR, no murmur, no edema Gastrointestinal (Abdomen): normal bowel sounds, soft, nontender, no hepatosplenomegaly Musculoskeletal: no cyanosis or clubbing, extremities motor strength 5/5 Skin: no rashes, warm and dry Principal Diagnosis major depressive disorder suicide attempt intentional acetaminophen overdose Discharge Exam Constitutional tired-appearing 19yo transgender male (F>M) who is sitting in his hospital bed upon my entrance, watching TV. He speaks freely and is alert and oriented throughout our conversation. No jaundice. NAD. Eyes anicteric Respiratory normal respiratory effort, lungs clear to auscultation Cardiovascular RRR, no murmur, no edema Gastrointestinal (Abdomen) normal bowel sounds, soft, nontender, no hepatosplenomegaly Musculoskeletal no asterixis Discharge Data Allergies Allergy/AdvReac Type Severity Reaction Status Date / Time No Known Allergies Allergy Unverified 01/24/20 18:38 Consultations 01/23/20 05:19 ED Decision to Admit Stat 01/23/20 07:20 Consult Psychiatry Routine Hospital Course (1) Depression: Braxton Jackson is a 19-year-old transgender male (s/p bilateral mastectomy on biweekly testosterone injections) who presented to [facility] on 01/22 by 302 following a suicide attempt with an inattentional overdose with Tylenol (7g), NyQuil, and EtOH. He vomited significantly prior to his arrival. Upon admission, his toxicology screen did reveal an acetaminophen level of 60ug/mL alongside a positive THC level; EtOH < 3.0. LFTs were WNL. PT/INR very mildly elevated at 12.7/1.2. BMP and CBC otherwise largely unremarkable. He was started on NAC for hepatic protection. He was subsequently admitted and put on a 1-to-1 in the setting of a recent suicide attempt. Inpatient psychiatry was consulted and saw Braxton. Their impression of the patient's history was consistent with depression, alongside possible OCPD and anxiety, exacerbated by multiple psychological stressors. During their consult, Braxton also confirmed that his ingestion of the aforementioned substances was an intentional suicide attempt with pre-contemplation (evidenced by suicide note). After discussing planning with him, Braxton decided he would be willing to go to an inpatient psychiatric center for intensive treatment. In the setting of recent/possible hepatic insult, initiation of SSRIs/other psychopharmacology was held for the time being. This can be considered while inpatient. Repeat laboratories were drawn to monitor recovery. Acetaminophen level < 2 upon d/c. AST/ALT WNL () prior to d/c. Total protein and albumin mildly reduced. BMP and CBC otherwise WNL. Clinically, patient denied any abdominal pain, nausea, or vomiting throughout her stay. No asterixis or jaundice. A&Ox4. He is discharged to inpatient psychiatric unit for intensive management (including addition of pharmacologics as indicated) and observation following a recent suicide attempt and MDD. Following his discharge from here, he should have close and regular follow-ups with both psychiatry and his PCP for further medical and psychiatric management. (2) Suicide attempt: (3) Intentional acetaminophen overdose: (4) Tobacco abuse: (5) Nausea & vomiting: Total Time Total Time Spent Total Time Spent (In Minutes): 1 night (d/c on true Day 1 of hospitalization) Discharge Plan Discharge Items Patient Disposition: Transfer Behavioral Health Fac Reason For Visit: SUICIDE ATTEMPT,TYLENOL,NYQUIL,VODKA OVERDOSE Discharge Diagnosis: major depressive disorder suicide attempt intentional acetaminophen overdose Condition on Discharge: Good Activity: Per Instructions section Non-emergency contact: Primary Care Provider and Psychiatrist Call non-emergency contact if: your symptoms worsen and your pain is worsening Follow-up/Referrals: [place] [Primary Care Provider] - Diet: Regular Addtl Attending Provider Instructions: Braxton Jackson is a 19-year-old transgender male (s/p bilateral mastectomy on biweekly testosterone injections) who presented to [facility] on 01/22 by 302 following a suicide attempt with an inattentional overdose with Tylenol (7g), NyQuil, and EtOH. He vomited significantly prior to his arrival. Upon admission, his toxicology screen did reveal an acetaminophen level of 60ug/mL alongside a positive THC level; EtOH < 3.0. LFTs were WNL. PT/INR very mildly elevated at 12.7/1.2. BMP and CBC otherwise largely unremarkable. He was started on NAC for hepatic protection. He was subsequently admitted and put on a 1-to-1 in the setting of a recent suicide attempt. Inpatient psychiatry was consulted and saw Braxton. Their impression of the patient's history was consistent with depression, alongside possible OCPD and anxiety, exacerbated by multiple psychological stressors. During their consult, Braxton also confirmed that his ingestion of the aforementioned substances was an intentional suicide attempt with precontemplation (evidenced by suicide note). After discussing planning with him, Braxton decided he would be willing to go to an inpatient psychiatric center for intensive treatment. In the setting of recent/possible hepatic insult, initiation of SSRIs/other psychopharmacology was held for the time being. This can be considered while inpatient. Repeat laboratories were drawn to monitor recovery. Acetaminophen level < 2 upon d/c. AST/ALT WNL (). Total protein and albumin mildly reduced. BMP and CBC otherwise WNL. Clinically, patient denied any abdominal pain, nausea, or vomiting throughout her stay. No asterixis or jaundice. A&Ox4. He is to be transferred to an inpatient psychiatric facility for intensive management (including addition of pharmacologics as indicated) and observation following a recent suicide attempt and MDD. Pending Studies at Discharge: No Stand-Alone Forms: My [facility], Suicide Prevention Resources Medications and DC Order Prescriptions: Continued testosterone cypionate [Depo-Testosterone] 200 mg/mL oil 5 mg subcut .[id number] RF: 0 No Action testosterone enanthate 50 mg/0.5 mL auto-injector 50 mg SQ .Q14 RF: 0 Discharge Orders: Discharge Order (Routine); Ordered 01/24/20 Ordered By: Sinan Restrepo Admission Data Admit Date/Time: 01/23/20 06:24 Attending Provider: Haley Yu Admit Provider: Kingsley Adames Primary Care Provider: [facility] Other Providers: Sheeba Brown ; Whit Whitman Other Interventions: Discharge Summary Assessment (RN) Last Done: 01/24/20 20:55 Supervising Physician Co-Signing Physician Notes Resident Physician Supervision Note: I independently interviewed and examined the patient and verified the rowland history and physical, reviewed labs and image studies, discussed the case with the resident Dr. Restrepo and agree with the findings and care plan. Resident Activity Tracking Resident Involvement: Resident Care Provided Care Provided: Adult Hospital Medicine
[2020-01-24 16:41] LABS: Marijuana Quant, GCMS Urine 112 ng/mL (<5)
--- NOTE | 2020-01-24 21:43 | Electrocardiogram Report ---
Test Reason : Blood Pressure : / mmHG Vent. Rate : 090 BPM Atrial Rate : 090 BPM P-R Int : 130 ms QRS Dur : 084 ms QT Int : 346 ms P-R-T Axes : 070 078 064 degrees QTc Int : 423 ms Normal sinus rhythm Normal ECG No previous ECGs available Confirmed by Ricardo Lovell ([id number]) on 01/24/2020 9:42:36 PM Referred By: REFERRED SELF Confirmed By:Ricardo Lovell
== END 2020-01-24 20:57 ==
LOC: EDSEX → ED 02:53 → SUATTDRO 06:24 → INTOOBSV 06:24 → 2S 06:24 → MERGE 06:24 → 2S 07:04

== ENCOUNTER 2020-01-24 16:51 | Inpatient (IN) ==
[2020-01-24] MEDS ORDERED: hydrOXYzine HCl 25 MG TAB PO PRN ×2 (19:28)
[2020-01-24] MEDS ORDERED: MAGNESIUM HYDROXIDE SUSP 30 ML UDC PO PRN (19:28)
[2020-01-24] MEDS ORDERED: ALUMINUM/MAGNESIUM SUSP 30 ML UDC PO PRN (19:28)
[2020-01-24] MEDS ORDERED: SODIUM CHLORIDE 0.65% NA SOLN 45 ML (OCEAN) PRN (19:28)
[2020-01-24] MEDS ORDERED: BISMUTH SUBSALICYLATE LIQD 236 ML PO PRN (19:28)
[2020-01-24] MEDS ORDERED: IBUPROFEN 200 MG TAB PO PRN (19:32)
[2020-01-25 07:38] LABS: Basophils # (auto) 0.01 K/uL (0-0.2); Basophils % (auto) 0.1 %; Eosinophils # (auto) 0.27 K/uL (0-0.5); Hematocrit (blood only) 49.3 % (37-47); Immature Granulocytes # (auto) 0.02 K/uL (0.00-0.02); Immature Granulocytes % (auto) 0.3 %; Lymphocytes # (auto) 1.99 K/uL (1.2-3.4); Lymphocytes % (auto) 29.4 %; Mean Corpuscular Hemoglobin 29.2 pg (25-34); Mean Corpuscular Hgb Conc 34.5 g/dL (32-36); Mean Corpuscular Volume 84.7 fL (80-100); Mean Platelet Volume 10.6 fL (7.4-10.4); Monocytes # (auto) 0.65 K/uL (0.11-0.59); Monocytes % (auto) 9.6 %; Neutrophils # (auto) 3.84 K/uL (1.4-6.5); Neutrophils % (auto) 56.6 %; Platelet Count 224 K/uL (130-400); RDW Coefficient of Variation 11.8 % (11.5-14.5); RDW Standard Deviation 36.3 fL (36.4-46.3); Red Blood Count 5.82 M/uL (4.2-5.4); White Blood Count 6.78 K/uL (4.8-10.8)
[2020-01-25 07:51] LABS: INR 1.1 (0.9-1.1); Prothrombin Time 11.5 Seconds (9.0-12.0)
--- NOTE | 2020-01-25 09:03 | History & Physical ---
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 He is resistant to the recommendation for antidepressant medication, wanting to try therapy first, but has not been able to schedule with a therapist although is on multiple wait lists. He remains ambivalent about being alive, and initially not interested in medication, but after some discussion agreed to a trial of an SSRI. Would also benefit from therapy and increasing supports. Inpatient treatment is medically necessary due to the severity of symptoms and risk for suicide if discharged. (1) Intentional acetaminophen overdose: 01/24 -CBC, CMP, and PT/INR repeated today: CBC unchanged, LFTs within the normal range, PT/INR now normal. Encounter type: initial encounter Qualified Code(s): T39.1X2A - Poisoning by 4-Aminophenol derivatives, intentional self-harm, initial encounter (2) Suicide attempt: 01/24 -patient attempted suicide by potentially lethal means, with clear intent to , left a suicide note, and did not notify anyone until the following day. Continue inpatient treatment on the locked psychiatric unit, suicide checks for safety. -Engage patient in groups and therapy, work on healthy coping skills and discharge safety plan. -Recommend family meeting with mother. (3) Depression: 01/24 -reviewed diagnosis and recommended treatment, including the role of medication and therapy. Patient agreed to a trial of sertraline, after reviewing the risks, benefits, and alternative agents in that class. Start 25mg daily, increase to 50mg tomorrow, and titrate to goal dose of 100 to 150mg daily. - Recommend family meeting, explore ways to expand supports. Active/Remission status: currently active Depression Type: major depressive disorder Major depression episode severity: moderate Major depression recurrence: unspecified whether recurrent Qualified Code(s): F32.1 - Major depressive disorder, single episode, moderate Risk Factors Assessment Male: Yes (female to male transgender) : Yes Do You Have Access To A Gun?: No Health Problems: No Mental Health Diagnoses: Yes Substance Use Disorders: No Previous Attempt: Yes Family History of Suicide: Yes Previous Psychiatric Hospitalization: No Hopelessness: Yes Smoker: No Protective Factors Assessment Bahai Beliefs: No : No Responsible for Young Children: No Employed: No Stable Relationships: No Supportive Family: Yes Good Rapport with Provider: No Psychiatric History Identifying Data ANNEMARIE LOWE is a 19-year-old F to M transgender [facility] student from [facility] who lives alone in [place], goes by "Braxton," has a history of depression, and was admitted on 01/24/20 20:57 on a 201 voluntary commitment for suicide attempt by overdose on acetaminophen, alcohol, and NyQuil, after being treated on the hospitalist service for [facility]. Chief Complaint "Just overwhelmed with a lot of things right now". History of Present Illness Patient presented to the hospital 01/23/2020 after a suicide attempt by overdose on 01/22/2020. He reported taking 7 g of acetaminophen, three quarters of a bottle of NyQuil, a shot of vodka, and marijuana. He left a suicide note which his mother found, and in which he apologized for taking his life and provided instructions about what to do with his body and belongings. Acetaminophen level was 60 on presentation, UDS + THC. He was admitted to the hospitalist service for [facility], and was seen by Dr. Manzo in consultation 01/23/2020. Per his note: he describes more avoidance of emotional suffering than lack of meaningful life experience. He describes background suicidal ideation for many years, likely going back to middle school, but has never attempted to harm himself before. He identifies obligation or responsibility to others as primary barrier to self-harm in the past. Believes he has been depressed since childhood. Suffered traumatic loss of of father at age 5. Reports he was told this was from a heart attack however apparently was due to an accidental overdose. Describes long awareness of the unfairness of life, but and life are commingled, and states in short, "the world sucks." He describes a tendency to be highly self-critical, perfectionistic, and will "reanalyze" prior decision making in a ruminative manner. Presently he describes some continued ambivalence about the prospect of being alive but states that he has already had experiences here in the hospital that he has been grateful for which he would not have had if he had been successful in taking his life. He endorses willingness to accept treatment for his depression and indicates that he would be willing for voluntary psychiatric hospitalization following medical clearance. Patient does have a box to be 302 warrant on his chart signed by police. Recent multiple stressors including a break-up with a partner about 1 week ago which reportedly had been a toshia long-distance relationship with boyfriend living in [place]. His mother has also recently been ill and hospitalized and he has voiced significant distress about upcoming election. Symptoms of depression have included decreased interest, feelings of guilt, decreased energy, decreased concentration, variable appetite. Denies insomnia. Denies symptoms of kameron. Anxiety variable but has been increased associated with COVID-19 pandemic and does describe perfectionistic drives and a desire to seek control in his life but does not endorse overt ritualized behavior. He denies symptoms of psychosis, eating disorder. He is not taking any psychotropics at home. Initial Tylenol level appears drawn approximately 12 hours postingestion was 60 and N-acetylcysteine protocol initiated per poison control recommendations. LFTs normal so far. Presently no GI symptoms. Did reportedly vomit following ingestion. Reports that he did not see pills in his vomitus. On my assessment today, the patient states he is stressed about politics, the upcoming election, and concerns that "my rights will be taken away from me" because of the [place] [address] nomination. He is also stressed about school, having difficulty keeping up with his 16 credits, his mother's health (had SD a few weeks ago), and relationship problems. His mother is now recovering and is back to work. States he has been struggling with depression since middle school, with chronic intrusive thoughts of suicide, but no previous attempts. He cannot identify why "Saturday I decided to try it, just got tired of being responsible for so many things." He notes he tends to focus on the problems of others so that he doesn't have to address his own issues. Saturday he recalls "an immense feeling of being overwhelmed," missed his online classes, and somewhat impulsively decided to end his life. He "looked around to see what I had in my apartment, and Googled to see what to the upper limits were." He decided to take all the Tylenol in the bottle, drink all the Nyquil that was left, and drink alcohol and smoke pot to fall asleep. He took the OD around 3pm 01/21, and when by 2am the following morning he was feeling nauseated and vomiting, decided it wasn't going to kill him and decided to call an ambulance. He feels "colin neutral" that he is still alive. Continues to feel overwhelmed and "not happy." States few supports as "I'm usually the one my friends go to, so I feel bad talking to the about their problems because I don't want to add to them." Boss at [employer] is supportive. Mother "has her own mental health problems, and rants to me, whenever I try to explain mine, she gets defensive." Past Psychiatric History Previous Psych History: Briefly saw a therapist at [facility] fall semester of his sophomore year at [employer], "to get my letter for gender dysphoria, so I could medically transition." States he contacted [facility] recently to get therapy, and was referred to local offices (below). Briefly saw a psychiatrist (in [place], can't recall name) senior year of (2 appointments) for therapy, but didn't think it was helpful, and did not continue the medication that was started. Current Psychiatric Diagnosis: MDD, single episode, severe, without psychotic features. Outpatient Services: On a wait list for a therapist at [facility]. Previous Psych Admissions: Denies Do You Have Access To A Gun?: No History of Previous Suicide Attempt: No Past Medication Trials: 1 brief psychotropic trial in high school, cannot recall the name of the medication, only took for a couple of weeks. Past Head Trauma/Neuro History History of Concussion/Seizure: No Allergies Allergy/AdvReac Type Severity Reaction Status Date / Time No Known Allergies Allergy Unverified 01/24/20 18:38 Home Medications Home Medications Medication Instructions Recorded Confirmed Type testosterone enanthate 50 mg/0.5 50 mg SQ .Q14 ml 11/06/18 11/06/18 History mL subcutaneous auto-injector testosterone cypionate 5 mg SUBCUT .[id number] 01/23/20 01/23/20 History [Depo-Testosterone] Family History Family History of: Depression (Mother), Anxiety (Mother), Bipolar (Uncle) and Suicide Completion (Uncle) Alcohol History Hx of Alcohol Use Over the Past 12 Months: Yes (once monthly, 1-2 drinks per episode.) AUDIT Total Score: 1 Smoking Use Have You Smoked or Used Tobacco Products in the Last 30 Days: No Smoking Status: Never smoker Substance History Hx of Prescription Med Misuse Over the Past 12 Months: No Hx of Over the Counter Med Misuse Over the Past 12 Months: No Hx of Inhalent Misuse Over the Past 12 Months: No Hx of Organic Substance Use Over the Past 12 Months: Yes (marijuana once a week for the past few months) Hx of Illegal Substances/Street Drug Use Over Past 12 Months: No Problems as a Result of Past Substance Use: None Identified Personal History Living Arrangements: Apartment Living Arrangements Comments: alone in [place] Born In: [place] Childhood: Parents when patient was 1 year old. Father when patient was 5 years old. They moved to [facility] when patient was in 8th grade. He and mother were homeless for 1-2 months shortly after coming to [place], as the friend they were supposed to stay with kicked them out. 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 Grades are mostly As, possibly bordering on Bs. Employment Status: Student Marital Status: Single Number Of Children: 0 Beliefs That Will Affect Care: None Current Legal Problems: No Hx Legal Problems: No Hx Traumatic Life Events: Yes Psychological Trauma History Comment: of father when patient was 5 years old - patient was initially told it was a heart attack, but later found it he accidentally overdosed, "took some medication that made his heart not be able to function properly." Has never really talked to his mother about it, so is not sure this is true. Patient History Medical History (Updated 01/25/20 @ 09:25 by Whit Whitman MD) Abdominal discomfort Acute sinusitis Acute URI Allergic rhinitis Bilateral knee pain Cough Flu-like symptoms Headache Nausea and vomiting Otitis Sprain, finger Surveillance for control, oral contraceptives Surgical History (Updated 01/24/20 @ 18:38 by Jaci Tellez) S/P mastectomy, bilateral Family History (System 01/24/20 @ 18:38 by Jaci Tellez) Mother Depression Hypertension Grandmother (Maternal) Depression Grandfather (Maternal) Hypertension Social History (System 01/24/20 @ 18:38 by Jaci Tellez) Smoking Status: Never smoker Tobacco Type: Cigarettes Cigarettes Per Day: one every other week; Second Hand Exposure: No; Hx Alcohol Use: Yes Alcohol type: hard liquor Hx Substance Use: Yes Last Used Substance: Hours (ago) Preferred Language: American Communication Ability: Effective 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 Seated in NAD. Tattoos bilateral forearms. Eye Contact: good eye contact Motor Behavior: steady gait and station and no abnormal motor movements Speech: normal rate/rhythm/volume of speech Affect: + depressed affect, + constricted affect and mood congruent with affect Mood: + depressed mood Thought Process: goal directed thought process Thought Content: reality based without delusions Suicidal Thoughts: + reports suicidal thoughts Homicidal Thoughts: denies homicidal thoughts Hallucinations: no auditory hallucinations and no visual hallucinations Cognition: recent memory grossly intact, remote memory grossly intact, attention grossly intact and language grossly intact Estimated Intelligence: consistent with education level Insight: + impaired insight Judgement: + impaired judgement Vital Signs (Past 24 Hours): Last Vital Signs Temp 36.7 C 01/25/20 06:50 Pulse 60 01/25/20 06:51 Resp 16 01/25/20 06:50 BP 114/79 01/25/20 06:51 Exam Statement: A physical exam was performed on the medical floor prior to admission to the unit by Dr. Kingsley Adames. I accept that physical as correct/medical clearance for the inpatient physical exam. Results & Data ([facility]) Laboratory Results Laboratory Results - last 24 hr 01/25/20 01/25/20 01/25/20 07:22 07:22 07:22 WBC 6.78 RBC 5.82 H Hgb 17.0 H Hct 49.3 H MCV 84.7 MCH 29.2 MCHC 34.5 RDW Std Deviation 36.3 L RDW Coeff of Norma 11.8 Plt Count 224 MPV 10.6 H Immature Gran % (Auto) 0.3 Neut % (Auto) 56.6 Lymph % (Auto) 29.4 [place] % (Auto) 9.6 Eos % (Auto) 4.0 Baso % (Auto) 0.1 Neut # (Auto) 3.84 Lymph # (Auto) 1.99 [place] # (Auto) 0.65 H Eos # (Auto) 0.27 Baso # (Auto) 0.01 Immature Gran # (Auto) 0.02 PT 11.5 INR 1.1 Sodium Pending Potassium Pending Chloride Pending Carbon Dioxide Pending Anion Gap Pending BUN Pending Creatinine Pending Est Cr Clr Drug Dosing Pending Est GFR ( Amer) Pending Est GFR (Non-Af Amer) Pending BUN/Creatinine Ratio Pending Glucose Pending Calcium Pending Total Bilirubin Pending AST Pending ALT Pending Alkaline Phosphatase Pending Total Protein Pending Albumin Pending Globulin Pending Albumin/Globulin Ratio Pending Current Inpatient Medications Current Inpatient Medications: Current Inpatient Medications Al Hydrox/Mg Hydrox/Simethicone (Aluminum/Magnesium Susp 30 Ml Udc) 30 ml PO Q4H PRN PRN Reason: GI Upset Stop: 02/23/20 19:27 Bismuth Subsalicylate (Bismuth Subsalicylate Liqd 236 Ml) 15 ml PO PRN PRN PRN Reason: Loose Stool Stop: 02/23/20 19:27 Hydroxyzine HCl (Hydroxyzine Hcl 25 Mg Tab) 50 mg PO HSZ PRN PRN Reason: Insomnia Stop: 02/23/20 19:27 Hydroxyzine HCl (Hydroxyzine Hcl 25 Mg Tab) 25 mg PO Q4H PRN PRN Reason: Anxiety Stop: 02/23/20 19:27 Ibuprofen (Ibuprofen 200 Mg Tab) 400 mg PO Q8H PRN PRN Reason: Pain Stop: 02/23/20 19:31 Magnesium Hydroxide (Magnesium Hydroxide Susp 30 Ml Udc) 30 ml PO DAILY PRN PRN Reason: Constipation Stop: 02/23/20 19:27 Sodium Chloride (Sodium Chloride 0.65% Na Soln 45 Ml (Lane)) 1 - 2 sprays NA PRN PRN PRN Reason: Nasal Dryness/Congestion Stop: 02/23/20 19:27
[2020-01-25 09:22] LABS: Albumin Level 3.6 gm/dl (3.4-5.0); BUN Creatinine Ratio 12.7 (10-20); Calcium 9.2 mg/dl (8.5-10.1); Creatinine Clr Calc Pharmacy 74.6 ml/min; Est GFR (Non-African American) 77.6; Potassium 3.7 mmol/L (3.5-5.1)
[2020-01-25 09:24] LABS: Albumin Globulin Ratio 0.9 (0.9-2); Globulin 3.9 gm/dl (2.5-4.0); Total Protein 7.5 gm/dl (6.4-8.2)
[2020-01-25] MEDS ORDERED: SERTRALINE HCL 50 MG TABLET PO ONE (10:30)
[2020-01-25] MEDS ORDERED: NON-FORMULARY PATIENT'S OWN MED PO SCH (21:00)
[2020-01-25] MEDS: MINOCYCLINE PO SCH (21:55)
[2020-01-26] MEDS: SERTRALINE HCL 50 MG TABLET PO SCH (08:24)
[2020-01-26] MEDS: MINOCYCLINE PO SCH ×2 (08:25→21:54)
--- NOTE | 2020-01-26 09:19 | Psychiatric Progress Note ---
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 He is resistant to the recommendation for antidepressant medication, wanting to try therapy first, but has not been able to schedule with a therapist although is on multiple wait lists. He remains ambivalent about being alive, and initially not interested in medication, but after some discussion agreed to a trial of an SSRI. Would also benefit from therapy and increasing supports. Inpatient treatment is medically necessary due to the severity of symptoms and risk for suicide if discharged. (1) Intentional acetaminophen overdose: 01/24 -CBC, CMP, and PT/INR repeated today: CBC unchanged, LFTs within the normal range, PT/INR now normal. (2) Suicide attempt: 01/24 -patient attempted suicide by potentially lethal means, with clear intent to , left a suicide note, and did not notify anyone until the following day. Continue inpatient treatment on the locked psychiatric unit, suicide checks for safety. -Engage patient in groups and therapy, work on healthy coping skills and discharge safety plan. -Recommend family meeting with mother. 01/25 - Pt denies SI presently, reportedly working on safety planning - Continue to encourage group participation - Family meeting with identified outpatient support (3) Depression: 01/24 -reviewed diagnosis and recommended treatment, including the role of medication and therapy. Patient agreed to a trial of sertraline, after reviewing the risks, benefits, and alternative agents in that class. Start 25mg daily, increase to 50mg tomorrow, and titrate to goal dose of 100 to 150mg daily. - Recommend family meeting, explore ways to expand supports. 01/25 - Continue sertraline 50mg qAM - reporting some fatigue and feeling a little "fuzzy" this morning - Pt reporting some improvement in mood - Pt willing to identify support to participate in family meeting - feeling it may be his mother - Still needing to solidify aftercare plans Risk Factors Assessment Male: Yes (female to male transgender) : Yes Do You Have Access To A Gun?: No Health Problems: No Mental Health Diagnoses: Yes Substance Use Disorders: No Previous Attempt: Yes Family History of Suicide: Yes Previous Psychiatric Hospitalization: No Hopelessness: Yes Smoker: No Protective Factors Assessment Spiritism Beliefs: No : No Responsible for Young Children: No Employed: No Stable Relationships: No Supportive Family: Yes Good Rapport with Provider: No Interval History Identifying Information ANNEMARIE LOWE is a 19-year-old F to M transgender [employer] student from [facility] who lives alone in [place], goes by "Braxton," has a history of depression, and was admitted on 01/24/20 20:57 on a 201 voluntary commitment for suicide attempt by overdose on acetaminophen, alcohol, and NyQuil, after being treated on the hospitalist service for [facility]. Chief Complaint "Um, I'm ok. I was a little nauseous after the medication this morning." Review of Systems Notes Constitutional: reports fatigue, feeling a little "fuzzy" Cardiovascular: denied Respiratory: denied Gastrointestinal: nausea this AM Neurological: denied Psychiatric: denies symptoms other than stated above Total of at least 10 systems reviewed, pertinent positives as above and in HPI. Sleep Information Total Hours of Sleep: 7.25 Sleep Comments: pt on q-15 minute checks Meal Information Percent Meal Consumed - Breakfast: 100 Percent Meal Consumed - Lunch: 100 Percent Meal Consumed - Dinner: 100 Subjective Subjective Patient was seen & assessed and interval progress reviewed with nursing and social work. Staff report the patient has been participating in group programming. He has denied SI, but as of yesterday had continued to report some ambivalence about his suicide attempt not resulting in his anticipated outcome. Pt was seen today to assess progress since admission. Pt admits that he had experienced some nausea this morning, presumed to be related to initiation of sertraline. Pt also reports feeling tired and "a little fuzzy." Pt denies SI, but does admit to some feelings of helplessness. 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 Pt states he is hoping to use this time to consider areas in which he may need to begin cutting back. Pt reports feeling that groups have been helpful. Pt denies other needs or concerns today. Physical Exam Psychiatric Orientation: alert, oriented x 3 and cooperative Apperance: appropriately dressed, appropriately groomed and appeared stated age Eye Contact: good eye contact Motor Behavior: steady gait and station and no abnormal motor movements Speech: normal rate/rhythm/volume of speech Affect: + anxious affect, + blunted affect and mood congruent with affect Mood: + depressed mood and + anxious mood Thought Process: goal directed thought process, clear/coherent thought process and thought association intact Thought Content: reality based without delusions and + hopelessness (ongoing feelings of helplessness, but reports some improvement) Suicidal Thoughts: denies suicidal thoughts and denies suicidal intent but admits to ongoing hopelessness and helplessness Homicidal Thoughts: denies homicidal thoughts Hallucinations: no auditory hallucinations and no visual hallucinations Cognition: recent memory grossly intact, attention grossly intact and language grossly intact Estimated Intelligence: consistent with education level Insight: + fair insight Judgement: + fair judgement Vital Signs (Past 24 Hours) Last Vital Signs Temp 36.5 C 01/26/20 06:50 Pulse 67 01/26/20 06:50 Resp 16 01/26/20 06:50 BP 123/79 01/26/20 06:50 Results & Data ([facility]) Laboratory Results Laboratory Results - last 24 hr 01/25/20 07:22 Sodium 139 Potassium 3.7 Chloride 106 Carbon Dioxide 27 Anion Gap 6.0 BUN 13 D Creatinine 1.03 Est Cr Clr Drug Dosing 74.6 Est GFR ( Amer) 90.0 Est GFR (Non-Af Amer) 77.6 BUN/Creatinine Ratio 12.7 Glucose 80 Calcium 9.2 Total Bilirubin 1.0 D AST 30 ALT 47 Alkaline Phosphatase 63 Total Protein 7.5 D Albumin 3.6 Globulin 3.9 Albumin/Globulin Ratio 0.9 Current Inpatient Medications Current Inpatient Medications: Current Inpatient Medications Al Hydrox/Mg Hydrox/Simethicone (Aluminum/Magnesium Susp 30 Ml Udc) 30 ml PO Q4H PRN PRN Reason: GI Upset Stop: 02/23/20 19:27 Bismuth Subsalicylate (Bismuth Subsalicylate Liqd 236 Ml) 15 ml PO PRN PRN PRN Reason: Loose Stool Stop: 02/23/20 19:27 Hydroxyzine HCl (Hydroxyzine Hcl 25 Mg Tab) 50 mg PO HSZ PRN PRN Reason: Insomnia Stop: 02/23/20 19:27 Hydroxyzine HCl (Hydroxyzine Hcl 25 Mg Tab) 25 mg PO Q4H PRN PRN Reason: Anxiety Stop: 02/23/20 19:27 Ibuprofen (Ibuprofen 200 Mg Tab) 400 mg PO Q8H PRN PRN Reason: Pain Stop: 02/23/20 19:31 Magnesium Hydroxide (Magnesium Hydroxide Susp 30 Ml Udc) 30 ml PO DAILY PRN PRN Reason: Constipation Stop: 02/23/20 19:27 Minocycline: Non- Formulary Patient's Own Med 1 ea PO BID LAVERN Stop: 02/24/20 20:59 Last Admin: 01/26/20 08:25 Dose: 1 ea Documented by: Sertraline HCl (Sertraline Hcl 50 Mg Tablet) 50 mg PO QAM LAVERN Stop: 02/25/20 08:59 Last Admin: 01/26/20 08:24 Dose: 50 mg Documented by: Sodium Chloride (Sodium Chloride 0.65% Na Soln 45 Ml ([place])) 1 - 2 sprays NA PRN PRN PRN Reason: Nasal Dryness/Congestion Stop: 02/23/20 19:27 Mental Health & Subst Abuse Tx Therapist Name of Therapist: . Automobile Body Repair Supervisor Name of Automobile Body Repair Supervisor: SEBASTIAN Thornton Phone Number for Automobile Body Repair Supervisor: [phone] Case Management Appointment Comment: [facility] Post Discharge Appointments Primary Care Physician Name Of Family Doctor: [facility] Primary Care Provider Appointment Comment: Please follow up as needed Other #1: Name of Aftercare Appointment: Student [facility] Advocacy - Angela Phone Number of Aftercare Appointment: [phone] Aftercare Appointment Comment: [address] [place] [address] Contact Information Discharge Discharge [address] [address] [place] [address] (1) Intentional acetaminophen overdose Encounter type: initial encounter Qualified Code(s): T39.1X2A - Poisoning by 4-Aminophenol derivatives, intentional self-harm, initial encounter (2) Depression Active/Remission status: currently active Depression Type: major depressive disorder Major depression episode severity: moderate Major depression recurrence: unspecified whether recurrent Qualified Code(s): F32.1 - Major depressive disorder, single episode, moderate
[2020-01-27] MEDS: MINOCYCLINE PO SCH ×2 (07:55→21:09)
[2020-01-27] MEDS: SERTRALINE HCL 50 MG TABLET PO SCH (09:07)
--- NOTE | 2020-01-27 09:08 | Psychiatric Progress Note ---
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 He is resistant to the recommendation for antidepressant medication, wanting to try therapy first, but has not been able to schedule with a therapist although is on multiple wait lists. He remains ambivalent about being alive, and initially not interested in medication, but after some discussion agreed to a trial of an SSRI. Would also benefit from therapy and increasing supports. Inpatient treatment is medically necessary due to the severity of symptoms and risk for suicide if discharged. (1) Intentional acetaminophen overdose: 01/24 -CBC, CMP, and PT/INR repeated today: CBC unchanged, LFTs within the normal range, PT/INR now normal. (2) Suicide attempt: 01/24 -patient attempted suicide by potentially lethal means, with clear intent to , left a suicide note, and did not notify anyone until the following day. Continue inpatient treatment on the locked psychiatric unit, suicide checks for safety. -Engage patient in groups and therapy, work on healthy coping skills and discharge safety plan. -Recommend family meeting with mother. 01/25 - Pt denies SI presently, reportedly working on safety planning - Continue to encourage group participation - Family meeting with identified outpatient support 01/26 - Pt continues to deny SI, reporting more hopefulness - Support meeting with friend via phone this afternoon (3) Depression: 01/24 -reviewed diagnosis and recommended treatment, including the role of medication and therapy. Patient agreed to a trial of sertraline, after reviewing the risks, benefits, and alternative agents in that class. Start 25mg daily, increase to 50mg tomorrow, and titrate to goal dose of 100 to 150mg daily. - Recommend family meeting, explore ways to expand supports. 01/25 - Continue sertraline 50mg qAM - reporting some fatigue and feeling a little "fuzzy" this morning - Pt reporting some improvement in mood - Pt willing to identify support to participate in family meeting - feeling it may be his mother - Still needing to solidify aftercare plans 01/26 - Titrating sertraline to 100mg starting tomorrow morning, denies nausea today - Ongoing improvement in mood reported - Support meeting scheduled this evening with a friend - Aftercare still needs solidified, but options available Risk Factors Assessment Male: Yes (female to male transgender) : Yes Do You Have Access To A Gun?: No Health Problems: No Mental Health Diagnoses: Yes Substance Use Disorders: No Previous Attempt: Yes Family History of Suicide: Yes Previous Psychiatric Hospitalization: No Hopelessness: Yes Smoker: No Protective Factors Assessment Yazidism Beliefs: No : No Responsible for Young Children: No Employed: No Stable Relationships: No Supportive Family: Yes Good Rapport with Provider: No Interval History Identifying Information ANNEMARIE LOWE is a 19-year-old F to M transgender [employer] [facility] student from [facility] [facility] who lives alone in [place], goes by "Braxton," has a history of depression, and was admitted on 01/24/20 20:57 on a 201 voluntary commitment for suicide attempt by overdose on acetaminophen, alcohol, and NyQuil, after being treated on the hospitalist service for [facility]. Chief Complaint "I'm doing pretty good today." Review of Systems Notes Constitutional: denied Cardiovascular: denied Respiratory: denied Gastrointestinal: denied Neurological: denied Psychiatric: denies symptoms other than stated above Total of at least 10 systems reviewed, pertinent positives as above and in HPI. Sleep Information Total Hours of Sleep: 7 Sleep Comments: pt on q-15 minute checks Meal Information Percent Meal Consumed - Breakfast: 80 Percent Meal Consumed - Lunch: 80 Percent Meal Consumed - Dinner: 100 Subjective Subjective Patient was seen & assessed and interval progress reviewed with treatment team. Staff report the patient has been participating in group programming and has been cooperative with treatment. He has agreed to a family meeting with a friend, which has been scheduled for this afternoon. There are still details of his aftercare that need to be arranged. Pt was seen today to assess progress since admission. Pt states he has been doing well and mood continues to improve. Pt describes mood as "really nice here, more positive." Pt states that his anxiety is improving as well. There is mention of interest in exploring the possibility of an emotional support animal. This is related to concerns of "living alone, and isolating when I get overwhelmed. I have started to get agoraphobic I think, so it would give me a reason to get out of the house and keep me on a schedule." Pt is hopeful the meeting scheduled for this afternoon will be helpful. Pt denies continued SI as well as other needs or concerns at this time. He felt the estimate length of stay of 1-2 days is reasonable. Physical Exam Psychiatric Orientation: alert, oriented x 3 and cooperative (and pleasant) Apperance: appropriately dressed, appropriately groomed and appeared stated age Eye Contact: good eye contact Motor Behavior: steady gait and station and no abnormal motor movements Speech: normal rate/rhythm/volume of speech Affect: euthymic affect and mood congruent with affect Mood: no depressed mood and no anxious mood Thought Process: goal directed thought process, clear/coherent thought process and thought association intact Thought Content: reality based without delusions; no hopelessness and no worthlessness Suicidal Thoughts: denies suicidal thoughts, denies suicidal plan and denies suicidal intent Homicidal Thoughts: denies homicidal thoughts Hallucinations: no auditory hallucinations and no visual hallucinations Cognition: recent memory grossly intact, attention grossly intact and language grossly intact Estimated Intelligence: consistent with education level Insight: good insight Judgement: good judgement Vital Signs (Past 24 Hours) Last Vital Signs Temp 36.7 C 01/27/20 06:45 Pulse 65 01/27/20 06:46 Resp 16 01/27/20 06:45 BP 108/72 01/27/20 06:46 Results & Data ([facility]) Current Inpatient Medications Current Inpatient Medications: Current Inpatient Medications Al Hydrox/Mg Hydrox/Simethicone (Aluminum/Magnesium Susp 30 Ml Udc) 30 ml PO Q4H PRN PRN Reason: GI Upset Stop: 02/23/20 19:27 Bismuth Subsalicylate (Bismuth Subsalicylate Liqd 236 Ml) 15 ml PO PRN PRN PRN Reason: Loose Stool Stop: 02/23/20 19:27 Hydroxyzine HCl (Hydroxyzine Hcl 25 Mg Tab) 50 mg PO HSZ PRN PRN Reason: Insomnia Stop: 02/23/20 19:27 Hydroxyzine HCl (Hydroxyzine Hcl 25 Mg Tab) 25 mg PO Q4H PRN PRN Reason: Anxiety Stop: 02/23/20 19:27 Ibuprofen (Ibuprofen 200 Mg Tab) 400 mg PO Q8H PRN PRN Reason: Pain Stop: 02/23/20 19:31 Magnesium Hydroxide (Magnesium Hydroxide Susp 30 Ml Udc) 30 ml PO DAILY PRN PRN Reason: Constipation Stop: 02/23/20 19:27 Minocycline: Non- Formulary Patient's Own Med 1 ea PO BID LAVERN Stop: 02/24/20 20:59 Last Admin: 01/27/20 07:55 Dose: 1 ea Documented by: Sertraline HCl (Sertraline Hcl 50 Mg Tablet) 50 mg PO QAM LAVERN Stop: 02/25/20 08:59 Last Admin: 01/27/20 09:07 Dose: 50 mg Documented by: Sodium Chloride (Sodium Chloride 0.65% Na Soln 45 Ml ([place])) 1 - 2 sprays NA PRN PRN PRN Reason: Nasal Dryness/Congestion Stop: 02/23/20 19:27 Mental Health & Subst Abuse Tx Psychiatrist Name of Psychiatrist: [facility] Psychiatrist's Date of Appointment with Psychiatrist: 04/15/20 Time of Appointment with Psychiatrist: 1:30 p.m. Psychiatric Appointment Comment: [phone] Therapist Name of Therapist: . Soil Science Technical Officer Name of Soil Science Technical Officer: Student Care and Advocacy - Anegla Phone Number for Soil Science Technical Officer: [phone] Date of Appointment with Soil Science Technical Officer: 02/01/20 Time of Appointment with Soil Science Technical Officer: 2:00 p.m. Case Management Appointment Comment: Will contact you Post Discharge Appointments Primary Care Physician Name Of Family Doctor: [facility] Primary Care Provider Appointment Comment: Please follow up as needed Other #1: Name of Aftercare Appointment: . Phone Number of Aftercare Appointment: . Aftercare Appointment Comment: . Contact Information Discharge Discharge [address]: [address] [place] [address] (1) Depression Active/Remission status: currently active Depression Type: major depressive disorder Major depression episode severity: moderate Major depression recurrence: unspecified whether recurrent Qualified Code(s): F32.1 - Major depressive disorder, single episode, moderate (2) Intentional acetaminophen overdose Encounter type: initial encounter Qualified Code(s): T39.1X2A - Poisoning by 4-Aminophenol derivatives, intentional self-harm, initial encounter
[2020-01-28] MEDS: MINOCYCLINE PO SCH ×2 (09:02→21:12)
[2020-01-28] MEDS: SERTRALINE HCL 100 MG TABLET PO SCH (09:03)
--- NOTE | 2020-01-28 09:47 | Psychiatric Progress Note ---
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 He is resistant to the recommendation for antidepressant medication, wanting to try therapy first, but has not been able to schedule with a therapist although is on multiple wait lists. He remains ambivalent about being alive, and initially not interested in medication, but after some discussion agreed to a trial of an SSRI. Would also benefit from therapy and increasing supports. Inpatient treatment is medically necessary due to the severity of symptoms and risk for suicide if discharged. (1) Intentional acetaminophen overdose: 01/24 -CBC, CMP, and PT/INR repeated today: CBC unchanged, LFTs within the normal range, PT/INR now normal. (2) Suicide attempt: 01/24 -patient attempted suicide by potentially lethal means, with clear intent to , left a suicide note, and did not notify anyone until the following day. Continue inpatient treatment on the locked psychiatric unit, suicide checks for safety. -Engage patient in groups and therapy, work on healthy coping skills and discharge safety plan. -Recommend family meeting with mother. 01/25 - Pt denies SI presently, reportedly working on safety planning - Continue to encourage group participation - Family meeting with identified outpatient support 01/26 - Pt continues to deny SI, reporting more hopefulness - Support meeting with friend via phone this afternoon 01/27 - Denying SI, does admit to increased anxiety last evening and today related to call from mother (3) Depression: 01/24 -reviewed diagnosis and recommended treatment, including the role of medication and therapy. Patient agreed to a trial of sertraline, after reviewing the risks, benefits, and alternative agents in that class. Start 25mg daily, increase to 50mg tomorrow, and titrate to goal dose of 100 to 150mg daily. - Recommend family meeting, explore ways to expand supports. 01/25 - Continue sertraline 50mg qAM - reporting some fatigue and feeling a little "fuzzy" this morning - Pt reporting some improvement in mood - Pt willing to identify support to participate in family meeting - feeling it may be his mother - Still needing to solidify aftercare plans 01/26 - Titrating sertraline to 100mg starting tomorrow morning, denies nausea today - Ongoing improvement in mood reported - Support meeting scheduled this evening with a friend - Aftercare still needs solidified, but options available 01/27 - Continue sertraline 100mg qAM - Support meeting with friend went well, friend is supportive - Pt requested additional meeting with mother to address role reversal and boundary concerns which have been contributing to anxiety Risk Factors Assessment Male: Yes (female to male transgender) : Yes Do You Have Access To A Gun?: No Health Problems: No Mental Health Diagnoses: Yes Substance Use Disorders: No Previous Attempt: Yes Family History of Suicide: Yes Previous Psychiatric Hospitalization: No Hopelessness: Yes Smoker: No Protective Factors Assessment Advent Beliefs: No : No Responsible for Young Children: No Employed: No Stable Relationships: No Supportive Family: Yes Good Rapport with Provider: No Interval History Identifying Information ANNEMARIE LOWE is a 19-year-old F to M transgender [employer] student from [place] who lives alone in [place], goes by "UGOBE," has a history of depression, and was admitted on 01/24/20 20:57 on a 201 voluntary commitment for suicide attempt by overdose on acetaminophen, alcohol, and NyQuil, after being treated on the hospitalist service for [facility]. Chief Complaint "Eh, kind of anxious." Review of Systems Notes Constitutional: denied Cardiovascular: denied Respiratory: denied Gastrointestinal: denied Neurological: denied Psychiatric: denies symptoms other than stated above Total of at least 10 systems reviewed, pertinent positives as above and in HPI. Sleep Information Total Hours of Sleep: 6 Sleep Comments: pt on q-15 minute checks Meal Information Percent Meal Consumed - Breakfast: 40 Percent Meal Consumed - Lunch: 100 Percent Meal Consumed - Dinner: 100 Subjective Subjective Patient was seen & assessed and interval progress reviewed with nursing and social work. Staff report the patient has been participating in group programming and has been supportive of peers. Pt had a productive meeting with a friend yesterday. He rated his mood a 6/10 and "overwhelmed" last evening related to an anxiety-provoking phone call with his mother. Pt requested to schedule a meeting with his mother today to discuss boundary concerns. Pt was seen today to assess progress since admission. Pt states he is "eh, kind of anxious" today. He admits "I was doing regally great yesterday before the phone call with my mom." The patient states that he learned his mother went to the ED, stating she had a panic attack related to being worried the patient was in the hospital. Pt states that he has struggled with his relationship with his mother for numerous reasons, and has gotten to the point that he will generally not communicate information so as not to worry her more. The patient states the was hoping to continue ongoing conversations about boundaries and limits during a meeting on this unit. Pt states, "I'm more anxious, just having thoughts like 'God, I'm just tired of this' - but denies suicidal ideation. Pt states "even if the meeting goes south, I know I have a lot of friends that understand the relationship and will support me." Pt states he still believes he will be ready for discharge tomorrow. He denies concerns thus far related to increased dose of sertraline. Pt denies other needs or concerns at this time. Physical Exam Psychiatric Orientation: alert, oriented x 3 and cooperative Apperance: appropriately dressed, appropriately groomed and appeared stated age Eye Contact: good eye contact Motor Behavior: steady gait and station and no abnormal motor movements Speech: normal rate/rhythm/volume of speech Affect: + blunted affect and mood congruent with affect Mood: + anxious mood Thought Process: goal directed thought process, clear/coherent thought process and thought association intact Thought Content: reality based without delusions; no hopelessness and no worthlessness But reports recurrent thoughts of "I'm just tired of this" related to relationship with mother Suicidal Thoughts: denies suicidal thoughts and denies suicidal intent Homicidal Thoughts: denies homicidal thoughts Hallucinations: no auditory hallucinations and no visual hallucinations Cognition: recent memory grossly intact, attention grossly intact and language grossly intact Estimated Intelligence: consistent with education level Insight: good insight Judgement: good judgement Vital Signs (Past 24 Hours) Last Vital Signs Temp 36.7 C 01/28/20 06:49 Pulse 96 H 01/28/20 06:50 Resp 16 01/28/20 06:49 BP 117/77 01/28/20 06:50 Results & Data ([facility]) Current Inpatient Medications Current Inpatient Medications: Current Inpatient Medications Al Hydrox/Mg Hydrox/Simethicone (Aluminum/Magnesium Susp 30 Ml Udc) 30 ml PO Q4H PRN PRN Reason: GI Upset Stop: 02/23/20 19:27 Bismuth Subsalicylate (Bismuth Subsalicylate Liqd 236 Ml) 15 ml PO PRN PRN PRN Reason: Loose Stool Stop: 02/23/20 19:27 Hydroxyzine HCl (Hydroxyzine Hcl 25 Mg Tab) 50 mg PO HSZ PRN PRN Reason: Insomnia Stop: 02/23/20 19:27 Hydroxyzine HCl (Hydroxyzine Hcl 25 Mg Tab) 25 mg PO Q4H PRN PRN Reason: Anxiety Stop: 02/23/20 19:27 Ibuprofen (Ibuprofen 200 Mg Tab) 400 mg PO Q8H PRN PRN Reason: Pain Stop: 02/23/20 19:31 Magnesium Hydroxide (Magnesium Hydroxide Susp 30 Ml Udc) 30 ml PO DAILY PRN PRN Reason: Constipation Stop: 02/23/20 19:27 Minocycline: Non- Formulary Patient's Own Med 1 ea PO BID LAVERN Stop: 02/24/20 20:59 Last Admin: 01/28/20 09:02 Dose: 1 ea Documented by: Sertraline HCl (Sertraline Hcl 100 Mg Tablet) 100 mg PO QAM LAVERN Stop: 02/27/20 08:59 Last Admin: 01/28/20 09:03 Dose: 100 mg Documented by: Sodium Chloride (Sodium Chloride 0.65% Na Soln 45 Ml ([place])) 1 - 2 sprays NA PRN PRN PRN Reason: Nasal Dryness/Congestion Stop: 02/23/20 19:27 Mental Health & Subst Abuse Tx Psychiatrist Name of Psychiatrist: Mustapha Guallpa Psychiatrist's Date of Appointment with Psychiatrist: 04/15/20 Time of Appointment with Psychiatrist: 1:30 p.m. Psychiatric Appointment Comment: [facility] Therapist Name of Therapist: [facility] - Radha Aranda Therapist's Date of Therapist Appointment: 02/03/20 Time of Therapist Appointment: 5:00 p.m. Therapy Appointment Comment: Telehealth appt - Please complete online paperwork (sent via email) Provider Education Specialist Name of Provider Education Specialist: [facility] - Angela Phone Number for Provider Education Specialist: [phone] Date of Appointment with Provider Education Specialist: 02/01/20 Time of Appointment with Provider Education Specialist: 2:00 p.m. Case Management Appointment Comment: Will contact you Post Discharge Appointments Primary Care Physician Name Of Family Doctor: [facility] Date of Appointment with PCP: 02/08/20 Time of Appointment with PCP: 10:40 a.m. (please arrive 5-10 minutes early) Provider Appointment Comment: Please follow up as needed Other #1: Name of Aftercare Appointment: . Phone Number of Aftercare Appointment: . Aftercare Appointment Comment: . Contact Information Discharge Discharge Address: [address] [place] [address] (1) Intentional acetaminophen overdose Encounter type: initial encounter Qualified Code(s): T39.1X2A - Poisoning by 4-Aminophenol derivatives, intentional self-harm, initial encounter (2) Depression Active/Remission status: currently active Depression Type: major depressive disorder Major depression episode severity: moderate Major depression recurrence: unspecified whether recurrent Qualified Code(s): F32.1 - Major depressive disorder, single episode, moderate
[2020-01-29] MEDS: SERTRALINE HCL 100 MG TABLET PO SCH (08:56)
[2020-01-29] MEDS: MINOCYCLINE PO SCH (08:56)
--- NOTE | 2020-01-29 12:32 | Discharge Summary ---
Date of Service January 29, 2020 History of Present Illness Patient presented to the hospital 01/23/2020 after a suicide attempt by overdose on 01/22/2020. He reported taking 7 g of acetaminophen, three quarters of a bottle of NyQuil, a shot of vodka, and marijuana. He left a suicide note which his mother found, and in which he apologized for taking his life and provided instructions about what to do with his body and belongings. Acetaminophen level was 60 on presentation, UDS + THC. He was admitted to the hospitalist service for [facility], and was seen by Dr. Manzo in consultation 01/23/2020. Per his note: he describes more avoidance of emotional suffering than lack of meaningful life experience. He describes background suicidal ideation for many years, likely going back to middle school, but has never attempted to harm himself before. He identifies obligation or responsibility to others as primary barrier to self-harm in the past. Believes he has been depressed since childhood. Suffered traumatic loss of of father at age 5. Reports he was told this was from a heart attack however apparently was due to an accidental overdose. Describes long awareness of the unfairness of life, but and life are commingled, and states in short, "the world sucks." He describes a tendency to be highly self-critical, perfectionistic, and will "reanalyze" prior decision making in a ruminative manner. Presently he describes some continued ambivalence about the prospect of being alive but states that he has already had experiences here in the hospital that he has been grateful for which he would not have had if he had been successful in taking his life. He endorses willi ngness to accept treatment for his depression and indicates that he would be willing for voluntary psychiatric hospitalization following medical clearance. Patient does have a box to be 302 warrant on his chart signed by police. Recent multiple stressors including a break-up with a partner about 1 week ago which reportedly had been a toshia long-distance relationship with boyfriend living in [place]. His mother has also recently been ill and hospitalized and he has voiced significant distress about upcoming election. Symptoms of depression have included decreased interest, feelings of guilt, decreased energy, decreased concentration, variable appetite. Denies insomnia. Denies symptoms of kameron. Anxiety variable but has been increased associated with COVID-19 pandemic and does describe perfectionistic drives and a desire to seek control in his life but does not endorse overt ritualized behavior. He denies symptoms of psychosis, eating disorder. He is not taking any psychotropics at home. Initial Tylenol level appears drawn approximately 12 hours postingestion was 60 and N-acetylcysteine protocol initiated per poison control recommendations. LFTs normal so far. Presently no GI symptoms. Did reportedly vomit following ingestion. Reports that he did not see pills in his vomitus. On my assessment today, the patient states he is stressed about politics, the upcoming election, and concerns that "my rights will be taken away from me" because of the [place] [address] nomination. He is also stressed about school, having difficulty keeping up with his 16 credits, his mother's health (had NE a few weeks ago), and relationship problems. His mother is now recovering and is back to work. States he has been struggling with depression since middle school, with chronic intrusive thoughts of suicide, but no previous attempts. He cannot identify why "Saturday I decided to try it, just got tired of being responsible for so many things." He notes he tends to focus on the problems of others so that he doesn't have to address his own issues. Saturday he recalls "an immense feeling of being overwhelmed," missed his online classes, and somewhat impulsively decided to end his life. He "looked around to see what I had in my apartment, and Googled to see what to the upper limits were." He decided to take all the Tylenol in the bottle, drink all the Nyquil that was left, and drink alcohol and smoke pot to fall asleep. He took the OD around 3pm 01/21, and when by 2am the following morning he was feeling nauseated and vomiting, decided it wasn't going to kill him and decided to call an ambulance. He feels "colin neutral" that he is still alive. Continues to feel overwhelmed and "not happy." States few supports as "I'm usually the one my friends go to, so I feel bad talking to the about their problems because I don't want to add to them." Boss at [employer] is supportive. Mother "has her own mental health problems, and rants to me, whenever I try to explain mine, she gets defensive." Physical Exam Psychiatric Orientation: alert, oriented x 3 and cooperative Apperance: appropriately dressed, appropriately groomed and appeared stated age Eye Contact: + fair eye contact Motor Behavior: steady gait and station Speech: normal rate/rhythm/volume of speech Affect: euthymic affect "Much better. Thought Process: goal directed thought process and linear/logical thought process Thought Content: reality based without delusions Suicidal Thoughts: denies suicidal thoughts Homicidal Thoughts: denies homicidal thoughts Hallucinations: no auditory hallucinations and no visual hallucinations Cognition: recent memory grossly intact, remote memory grossly intact, attention grossly intact and language grossly intact Estimated Intelligence: + above average estimated intelligence Insight: good insight Judgement: good judgement Vital Signs (Past 24 Hours) Last Vital Signs Temp 36.5 C 01/29/20 10:11 Pulse 80 01/29/20 10:11 Resp 16 01/29/20 10:11 BP 118/76 01/29/20 10:11 Principal Diagnosis Major depressive disorder Psychiatric Data During the course of hospitalization the patient was offered various modalities of psychiatric treatment and education. These included individual, group, recreational, and family interventions. In addition, he was started on the antidepressant medication sertraline, and the dose of this medication was successfully titrated to 100 mg daily. The patient reported that he feels that he is tolerating this medication well, although he did briefly experience certain vague, somewhat difficult to describe side effects at the higher dose. The side effects were transient and not particularly distressing. The patient participated actively in treatment, formed several alliances, and focused on improving individual coping strategies, particularly stress management. The patient reports that his suicidal thoughts resolved soon as he realized that he might actually have taken a lethal dose, although he adds that he knew, even at the time, that he probably had not. The patient also notes that he had no further suicidal thoughts while being observed and treated on the medical floor and that his suicidal thoughts did not recur during his 5-day stay on the behavioral health unit. Patient also reports a significant relief that he had not caused any serious injury to his liver after learning that an overdose of Tylenol can lead to that. He explains that although he did take a large overdose, he spontaneously vomited several times following the overdose and before coming to the hospital, and so he suspects that he actually had absorbed a relatively small amount of acetaminophen. Following meetings with his mother and a friend, and based on the patient's bright affect and hard work during the hospital stay it was agreed by the members of the treatment team that the patient had not received maximum benefit from inpatient treatment and was ready to be discharged to the community. The patient told us that he feels completely ready. He also was able to describe in some detail his community safety plan. Day of Discharge Assessment On the day of discharge, the patient was found to be pleasant and cooperative. He was appropriately dressed and groomed and engaged actively in the discharge assessment. The patient's speech was spontaneous, and was delivered at a normal rate and rhythm. His thought processes demonstrated tight associations, and his thought content was devoid of any psychotic features. There is no evidence that he has experienced any perceptual disturbances. As noted above, he consistently reported that he has had no further thoughts of suicide subsequent to the overdose, and feels both a sense of relief that he survived relatively unscathed, and somewhat embarrassed about the fact that he had not found a better way of discharging his distress. The patient is future oriented, talks about his academic and vocational goals, as well as certain romantic goals that he has decided to put on hold "for the time being," but expects to resurrect at some point in the future. His intelligence is estimated to be above average. The patient's insight and judgment are adequate. Transition of Care Transition Of Care Record: was reviewed with the patient Advance Directives Advance Directives Information Provided: Yes Advance Directives: No Mental Health Advance Directive: No Living Will: No Power of Outside Cutter Hand: No Advance Directives Reason:: Declines as Mental Health Visit. Risk Factors Assessment Major depression. History of suicide attempt. Substantial psychosocial stressors. Male: Yes (female to male transgender) : Yes Do You Have Access To A Gun?: No Health Problems: No Mental Health Diagnoses: Yes Substance Use Disorders: No Previous Attempt: Yes Family History of Suicide: Yes Previous Psychiatric Hospitalization: No Hopelessness: Yes Smoker: No Protective Factors Assessment Moravian Beliefs: No : No Responsible for Young Children: No Employed: No Stable Relationships: No Supportive Family: Yes Good Rapport with Provider: No Absence of Any Risk Factors Above: No Tobacco Cessation at Discharge Tobacco Cessation Medication Prescribed at Discharge: Not Applicable/Non-Smoker Total Time Total Time Spent: Greater Than 30 Minutes Total Time Includes: Examination of the patient, Discharge Planning, Medication Reconciliation and Communication with other providers Discharge Data Lab Results 01/25/20 01/25/20 01/25/20 07:22 07:22 07:22 WBC 6.78 RBC 5.82 H Hgb 17.0 H Hct 49.3 H MCV 84.7 MCH 29.2 MCHC 34.5 RDW Std Deviation 36.3 L RDW Coeff of Norma 11.8 Plt Count 224 MPV 10.6 H Immature Gran % (Auto) 0.3 Neut % (Auto) 56.6 Lymph % (Auto) 29.4 Meriwether % (Auto) 9.6 Eos % (Auto) 4.0 Baso % (Auto) 0.1 Neut # (Auto) 3.84 Lymph # (Auto) 1.99 Meriwether # (Auto) 0.65 H Eos # (Auto) 0.27 Baso # (Auto) 0.01 Immature Gran # (Auto) 0.02 PT 11.5 INR 1.1 Sodium 139 Potassium 3.7 Chloride 106 Carbon Dioxide 27 Anion Gap 6.0 BUN 13 D Creatinine 1.03 Est Cr Clr Drug Dosing 74.6 Est GFR ( Amer) 90.0 Est GFR (Non-Af Amer) 77.6 BUN/Creatinine Ratio 12.7 Glucose 80 Calcium 9.2 Total Bilirubin 1.0 D AST 30 ALT 47 Alkaline Phosphatase 63 Total Protein 7.5 D Albumin 3.6 Globulin 3.9 Albumin/Globulin Ratio 0.9 Hospital Course (1) Depression: (1) Intentional acetaminophen overdose: 01/24 -CBC, CMP, and PT/INR repeated today: CBC unchanged, LFTs within the normal range, PT/INR now normal. (2) Suicide attempt: 01/24 -patient attempted suicide by potentially lethal means, with clear intent to , left a suicide note, and did not notify anyone until the following day. Continue inpatient treatment on the locked psychiatric unit, suicide checks for safety. -Engage patient in groups and therapy, work on healthy coping skills and discharge safety plan. -Recommend family meeting with mother. 01/25 - Pt denies SI presently, reportedly working on safety planning - Continue to encourage group participation - Family meeting with identified outpatient support 01/26 - Pt continues to deny SI, reporting more hopefulness - Support meeting with friend via phone this afternoon 01/27 - Denying SI, does admit to increased anxiety last evening and today related to call from mother 01/28 -Patient is tolerating sertraline 100 mg daily with only minor adverse effects that the patient finds to be tolerable and transient. -He is consistently denying suicidal thoughts. In addition, his affect is bright and he describes his mood as "much better." Further, the patient is future oriented and motivated to sustained recovery. (3) Depression: 01/24 -reviewed diagnosis and recommended treatment, including the role of medication and therapy. Patient agreed to a trial of sertraline, after reviewing the risks, benefits, and alternative agents in that class. Start 25mg daily, increase to 50mg tomorrow, and titrate to goal dose of 100 to 150mg daily. - Recommend family meeting, explore ways to expand supports. 01/25 - Continue sertraline 50mg qAM - reporting some fatigue and feeling a little "fuzzy" this morning - Pt reporting some improvement in mood - Pt willing to identify support to participate in family meeting - feeling it may be his mother - Still needing to solidify aftercare plans 01/26 - Titrating sertraline to 100mg starting tomorrow morning, denies nausea today - Ongoing improvement in mood reported - Support meeting scheduled this evening with a friend - Aftercare still needs solidified, but options available 01/27 - Continue sertraline 100mg qAM - Support meeting with friend went well, friend is supportive - Pt requested additional meeting with mother to address role reversal and boundary concerns which have been contributing to anxiety 01/28 -Patient's dose of sertraline has been increased to 100 mg a day, as noted above, and the patient indicates that he is generally tolerating it well. -His report is that his mood is "much better," and he has a he feels fully ready to return to the community for ongoing psychiatric treatment on an outpatient basis. -The patient is being discharged today. (2) Suicide attempt: (3) Intentional acetaminophen overdose: (4) Tobacco abuse: (5) Nausea & vomiting: Mental Health & Subst Abuse Tx Psychiatrist Name of Psychiatrist: [facility]'s Date of Appointment with Psychiatrist: 04/15/20 Time of Appointment with Psychiatrist: 1:30 p.m. Psychiatric Appointment Comment: [id number] Psychiatrist Release of Information: Obtained, Reviewed and Signed Therapist Name of Therapist: [facility] - Radha Aranda Therapist's Date of Therapist Appointment: 02/03/20 Time of Therapist Appointment: 5:00 p.m. Therapy Appointment Comment: Telehealth appt - Please complete online paperwork (sent via email) Therapist Release of Information: Obtained, Reviewed and Signed Oven Tender Name of Oven Tender: [facility] - Angela Phone Number for Oven Tender: [phone] Date of Appointment with Oven Tender: 02/01/20 Time of Appointment with Oven Tender: 2:00 p.m. Case Management Appointment Comment: Will contact you Post Discharge Appointments Primary Care Physician Name Of Family Doctor: [facility] Date of Appointment with PCP: 02/08/20 Time of Appointment with PCP: 10:40 a.m. (please arrive 5-10 minutes early) Provider Appointment Comment: Please follow up as needed Primary Care Release of Information: Obtained, Reviewed and Signed Smoking Cessation Counseling Tobacco Cessation Medication Prescribed at Discharge: Not Applicable/Non-Smoker Contact Information Discharge Discharge Address: [address] [place] [address] Discharge Plan Discharge Items Patient Disposition: Home - Self-Care Reason For Visit: MAJOR DEPRESSIVE DISORDER Discharge Diagnosis: Major Depressive Disorder, Severe, Recurrent Activity: Resume your previous activity Non-emergency contact: Primary Care Provider, Psychiatrist and Therapist Call non-emergency contact if: you have any medication questions and your symptoms worsen Follow-up/Referrals: [place] [Primary Care Provider] - Diet: Regular Addtl Attending Provider Instructions: SPECIAL CARE INSTRUCTIONS: 1. Follow through with your scheduled aftercare appointments. If unable to keep an appointment, please call to reschedule. 2. Take your medication only as prescribed. Medication should not be changed or stopped without the approval of your doctor. In the event of worsening symptoms or concerns about side effects, contact your doctor immediately. 3. Utilize new healthy coping skills, anger management skills, and stress management skills learned during your hospitalization. Journal feelings and process them with a support person. Identify stressors or situations that may result in relapse, deterioration or inappropriate behaviors and develop a plan to deal with those issues. 4. If your coping skills are ineffective and you are in crisis, contact your outpatient providers for direction. If unable to reach your providers, please call the [facility] CRISIS LINE AT , go to the [facility] walk-in center at [address], [address], [place], or go to the closest Emergency Room. 5. Avoid alcohol and un-prescribed drugs. 6. You have been provided with the Mental Health Advance Directives Pamphlet for your review. AFTERCARE APPOINTMENTS: * Please call your insurance company prior to your scheduled appointment to confirm your aftercare providers are covered. Take your insurance information to your appointments. WHO TO CALL AND WHEN: Medical Emergencies: For questions or emergencies related to your hospital stay, please contact the Inpatient Behavioral Health Unit at [phone]. A vascular technician is on-call 22/10 for the Behavioral Health Unit for emergencies At any time you feel your situation is an emergency, you may also call 911 immediately. Pending Studies at Discharge: No Stand-Alone Forms: My [facility] [employer], Smoking Cessation Medications and DC Order Prescriptions: New sertraline 100 mg Tablet 100 mg PO QAM Qty: 30 RF: 0 Continued testosterone enanthate 50 mg/0.5 mL auto-injector 50 mg SQ .Q14 RF: 0 testosterone cypionate [Depo-Testosterone] 200 mg/mL oil 5 mg subcut .[id number] RF: 0 Discharge Orders: Discharge Order (Routine); Ordered 01/29/20 Ordered By: Edgard Marshall Admission Data Admit Date/Time: 01/24/20 20:57 Attending Provider: Whit Whitman Admit Provider: Mitesh Manzo Primary Care Provider: [facility] Other Interventions: Discharge Summary Assessment (RN) Last Done: 01/29/20 10:11 PSY Interdisciplinary Discharge Planning Last Done: 01/29/20 10:11 C[place] [address] D/C day mgmt > 30 min Patient Type Established History Expanded Problem Focused Exam Expanded Problem Focused Medical Decision Making Moderate Complexity Diagnoses Depression F32.9 Suicide attempt T14.91XA Intentional acetaminophen overdose T39.1X2A Tobacco abuse Z72.0 Nausea & vomiting R11.2 Time Spent (min) 60
== END 2020-01-29 10:50 | disposition home or self-care (01) | DRG 885 ==
LOC: MERGE 16:51 → 3S 20:57